=== PATIENT | male | born 1945 | race Two or more races ===

== ENCOUNTER 2017-01-20 16:07 | Inpatient (IN) | payer MEDICARE, MEDICAID ==
[~2017-01-20] VITALS: Ht 177.8 cm; Wt 84.8 kg
[~2017-01-20 16:07] MED LIST: ATOR10TA PO; Hydralazine Hcl PO; INSASP SUBCUT; INSULIN SQ; levemir SQ; zosyn PO
[2017-01-20] MEDS ORDERED: FUROSEMIDE 20MG/2ML VIAL IVP ONE (17:00)
[2017-01-20 17:15] LABS: BASOPHILS % 1.4 % (0.0-2.0); EOSINOPHILS % 6.1 % (0.0-5.0); HEMATOCRIT. 29.6 % (42.0-52.0); HEMOGLOBIN. 9.9 g/dL (14.0-18.0); LYMPHOCYTES % 22.9 % (20.0-50.0); MEAN CORPUSCULAR HEMOGLOBIN 29.3 pg (28.0-32.0); MEAN CORPUSCULAR VOLUME 88.1 fL (80.0-94.0); MEAN PLATELET VOLUME 8.8 fl (7.4-10.4); MONOCYTES % 11.6 % (2.0-8.0); PLATELET 241 x1000/uL (130-400); RED BLOOD CELL COUNT 3.36 mill/uL (4.7-6.1); RED CELL DISTRIBUTION WIDTH 14.5 % (11.6-14.6)
[2017-01-20 17:16] LABS: CHLORIDE 107 mEq/L (98-107)
[2017-01-20 17:18] LABS: INR 1.1; PARTIAL THROMBOPLASTIN TIME 26.4 sec (24.0-34.0)
[2017-01-20 17:19] LABS: CARBON DIOXIDE 21 mEq/L (21-32)
[2017-01-20 17:26] LABS: CREATINE KINASE 56 IU/L (39-308); CREATINE KINASE MB FRACTION 4.7 ng/mL (0.5-3.6); TROPONIN I < 0.02 ng/mL (0.00-0.04)
[2017-01-20 22:00] VITALS: BP 145/78
[2017-01-20 22:30] VITALS: BP 145/78
[2017-01-20] MEDS ORDERED: FERR-63 PO (23:02)
[2017-01-20] MEDS ORDERED: GUAI-735 PO (23:02)
[2017-01-20] MEDS ORDERED: INSU3INS6 SUBCUT (23:02)
[2017-01-20] MEDS ORDERED: VITAMIN C PO (23:02)
[2017-01-20] MEDS ORDERED: HYDR-523 PO (23:02)
[2017-01-20] MEDS ORDERED: CLON0.1T PO (23:02)
[2017-01-20] MEDS ORDERED: DOCU-138 PO (23:02)
[2017-01-20] MEDS ORDERED: METO-298 PO (23:02)
[2017-01-20] MEDS ORDERED: ACET-2178 PO (23:02)
[2017-01-20] MEDS ORDERED: ATOR10TA PO (23:02)
[2017-01-20] MEDS ORDERED: HYDR-4135 PO (23:02)
[2017-01-20] MEDS ORDERED: [UNRECOGNIZED DRUG - CODE] (23:02)
[2017-01-21] VITALS: BP 138/78
[2017-01-21] MEDS ORDERED: DEXTROSE 50% WATER 50ML SYRINGE IV PRN (00:15)
[2017-01-21] MEDS ORDERED: ACETAMINOPHEN 650MG/20.3ML UDC PO PRN ×2 (00:15→11:15)
[2017-01-21] MEDS: INSULIN LISPRO 100 UNITS/ML SUBCUT SCH ×5 (00:17→21:56)
[2017-01-21] MEDS: BLOOD SUGAR DIAGNOSTIC STRIP TEST SCH ×5 (00:18→21:51)
[2017-01-21 03:39] VITALS: BP 126/78
[2017-01-21 08:00] VITALS: BP 199/96
[2017-01-21] MEDS: FUROSEMIDE 40MG/4ML VIAL IVP SCH (09:13)
[2017-01-21] MEDS: NITROGLYCERIN OINT 1GM/INCH UDPKT TD SCH (11:36)
[2017-01-21] MEDS: AMLODIPINE 10MG TABLET PO SCH (11:36)
[2017-01-21 12:00] VITALS: BP 170/76
[2017-01-21] MEDS ORDERED: ONDANSETRON HCL 4MG/2ML VIAL IV PRN (12:30)
[2017-01-21] MEDS ORDERED: HYDROCODONE/ACETAMINOPHEN 5/325MG TABLET PO PRN (12:30)
[2017-01-21] MEDS ORDERED: IPRATROPIUM/ALBUTEROL 0.5-3(2.5)MG/3ML NEB INH PRN (12:30)
[2017-01-21 13:15] LABS: HEMATOCRIT 33.7 % (42.0-52.0); MEAN CORPUSCULAR HEMOGLOBIN 28.9 pg (28.0-32.0); MEAN CORPUSCULAR VOLUME 88.1 fL (80.0-94.0); PLATELET 267 x1000/uL (130-400); RED BLOOD CELL COUNT 3.82 mill/uL (4.7-6.1); RED CELL DISTRIBUTION WIDTH 14.6 % (11.6-14.6)
[2017-01-21 16:00] VITALS: BP 148/73
[2017-01-21 18:02] LABS: CARBON DIOXIDE 24 mEq/L (21-32); CHLORIDE 103 mEq/L (98-107); CREATINE KINASE 51 IU/L (39-308)
[2017-01-21 18:04] LABS: TROPONIN I < 0.02 ng/mL (0.00-0.04)
[2017-01-21 20:00] VITALS: BP 128/64
[2017-01-21 22:04] LABS: CLARITY URINE CLEAR (CLEAR); COLOR URINE YELLOW (YELLOW); GLUCOSE URINE TRACE (NEGATIVE); KETONES URINE NEGATIVE (NEGATIVE); LEUKOCYTE ESTERASE URINE NEGATIVE (NEGATIVE); NITRITE URINE NEGATIVE (NEGATIVE); OCCULT BLOOD URINE NEGATIVE (NEGATIVE); PH URINE 5.5 (4.5-8.0); PROTEIN URINE TRACE (NEGATIVE); UROBILINOGEN URINE 0.2 E.U./dL (0.2-1.0)
[2017-01-21 22:17] LABS: *AMPHETAMINES SCREEN URINE NEGATIVE (NEGATIVE); *BARBITURATES SCREEN URINE NEGATIVE (NEGATIVE); *BENZODIAZEPINES SCREEN URINE NEGATIVE (NEGATIVE); *COCAINE SCREEN URINE NEGATIVE (NEGATIVE); CANNABINOID URINE SCREEN NEGATIVE (NEGATIVE); METHADONE URINE SCREEN NEGATIVE (NEGATIVE); OPIATES URINE SCREEN NEGATIVE (NEGATIVE); PHENCYCLIDINE URINE SCREEN NEGATIVE (NEGATIVE)
[2017-01-22] VITALS: BP 116/58
[2017-01-22 00:23] LABS: CREATINE KINASE 49 IU/L (39-308); TROPONIN I < 0.02 ng/mL (0.00-0.04)
[2017-01-22 04:00] VITALS: BP 133/68
[2017-01-22] MEDS: BLOOD SUGAR DIAGNOSTIC STRIP TEST SCH ×4 (06:36→21:00)
[2017-01-22 08:00] VITALS: BP 145/70
[2017-01-22 08:00] LABS: CHLORIDE 105 mEq/L (98-107)
[2017-01-22] MEDS: INSULIN LISPRO 100 UNITS/ML SUBCUT SCH ×4 (08:30→23:08)
[2017-01-22] MEDS: FUROSEMIDE 40MG/4ML VIAL IVP SCH (08:32)
[2017-01-22] MEDS: NITROGLYCERIN OINT 1GM/INCH UDPKT TD SCH (08:32)
[2017-01-22] MEDS: AMLODIPINE 10MG TABLET PO SCH (08:32)
[2017-01-22 08:39] LABS: CARBON DIOXIDE 20 mEq/L (21-32)
[2017-01-22 12:00] VITALS: BP 126/60
[2017-01-22 16:00] VITALS: BP 127/64
[2017-01-22 20:00] VITALS: BP 123/62
[2017-01-22 22:41] LABS: BASOPHILS % 1.2 % (0.0-2.0); EOSINOPHILS % 5.2 % (0.0-5.0); HEMOGLOBIN. 11.7 g/dL (14.0-18.0); LYMPHOCYTES % 21.5 % (20.0-50.0); MEAN CORPUSCULAR HEMOGLOBIN 29.3 pg (28.0-32.0); MEAN CORPUSCULAR VOLUME 87.6 fL (80.0-94.0); MEAN PLATELET VOLUME 9.1 fl (7.4-10.4); MONOCYTES % 9.5 % (2.0-8.0); NEUTROPHILS % 62.6 % (40.0-76.0); PLATELET 272 x1000/uL (130-400); RED CELL DISTRIBUTION WIDTH 14.2 % (11.6-14.6)
[2017-01-22 23:31] LABS: CARBON DIOXIDE 25 mEq/L (21-32); CHLORIDE 105 mEq/L (98-107)
[2017-01-23] VITALS (7 sets, daily range): BP systolic 115–153; BP diastolic 60–92
[2017-01-23] MEDS: INSULIN LISPRO 100 UNITS/ML SUBCUT SCH ×4 (08:12→21:15)
[2017-01-23] MEDS: BLOOD SUGAR DIAGNOSTIC STRIP TEST SCH ×4 (08:13→21:00)
[2017-01-23] MEDS: NITROGLYCERIN OINT 1GM/INCH UDPKT TD SCH (08:15)
[2017-01-23] MEDS: AMLODIPINE 10MG TABLET PO SCH (08:15)
[2017-01-23] MEDS: FUROSEMIDE 40MG/4ML VIAL IVP SCH (08:16)
[2017-01-23] MEDS ORDERED: FURO-151 PO (18:41)
[2017-01-23] MEDS ORDERED: [UNRECOGNIZED DRUG - OTHER] PO (18:42)
[2017-01-23 21:21] LABS: BASOPHILS % 0.9 % (0.0-2.0); EOSINOPHILS % 5.1 % (0.0-5.0); HEMATOCRIT. 35.1 % (42.0-52.0); HEMOGLOBIN. 11.8 g/dL (14.0-18.0); LYMPHOCYTES % 17.5 % (20.0-50.0); MEAN CORPUSCULAR HEMOGLOBIN 29.4 pg (28.0-32.0); MEAN CORPUSCULAR VOLUME 87.1 fL (80.0-94.0); MEAN PLATELET VOLUME 9.5 fl (7.4-10.4); MONOCYTES % 9.4 % (2.0-8.0); NEUTROPHILS % 67.1 % (40.0-76.0); PLATELET 257 x1000/uL (130-400); RED BLOOD CELL COUNT 4.02 mill/uL (4.7-6.1); RED CELL DISTRIBUTION WIDTH 13.8 % (11.6-14.6)
[2017-01-23 21:34] LABS: CHLORIDE 103 mEq/L (98-107)
[2017-01-23 21:42] LABS: CARBON DIOXIDE 22 mEq/L (21-32)
[2017-01-24] VITALS (7 sets, daily range): BP systolic 118–154; BP diastolic 60–83
[2017-01-24 07:08] LABS: BASOPHILS % 0.9 % (0.0-2.0); HEMATOCRIT. 32.4 % (42.0-52.0); HEMOGLOBIN. 10.9 g/dL (14.0-18.0); LYMPHOCYTES % 17.5 % (20.0-50.0); MEAN CORPUSCULAR HEMOGLOBIN 29.4 pg (28.0-32.0); MEAN CORPUSCULAR VOLUME 87.6 fL (80.0-94.0); MEAN PLATELET VOLUME 9.1 fl (7.4-10.4); MONOCYTES % 10.8 % (2.0-8.0); NEUTROPHILS % 63.8 % (40.0-76.0); PLATELET 245 x1000/uL (130-400); RED BLOOD CELL COUNT 3.69 mill/uL (4.7-6.1)
[2017-01-24] MEDS ORDERED: GLIPIZIDE XL 2.5MG TABLET PO SCH (07:50)
[2017-01-24] MEDS: INSULIN LISPRO 100 UNITS/ML SUBCUT SCH ×2 (08:05→12:46)
[2017-01-24] MEDS: AMLODIPINE 10MG TABLET PO SCH (08:05)
[2017-01-24] MEDS: FUROSEMIDE 40MG/4ML VIAL IVP SCH (08:06)
[2017-01-24] MEDS: NITROGLYCERIN OINT 1GM/INCH UDPKT TD SCH (08:06)
[2017-01-24] MEDS: BLOOD SUGAR DIAGNOSTIC STRIP TEST SCH (12:38)
== END 2017-01-24 16:15 | DRG 291 ==
LOC: ER 17:07 → EDBEDREQ 17:48 → EDBEDREQSVC 17:48 → 6WST 18:21 → EDBEDREQ 18:24 → ENRESERV 20:34
PROVIDERS: ADMIT Family Medicine; ATTEND Family Medicine
DX: I13.0 Hypertensive heart and chronic kidney disease with heart failure and stage 1 through stage 4 chronic kidney disease, or unspecified chronic kidney disease (principal); I50.41 Acute combined systolic (congestive) and diastolic (congestive) heart failure; N17.9 Acute kidney failure, unspecified; N18.9 Chronic kidney disease, unspecified; J44.9 Chronic obstructive pulmonary disease, unspecified; M19.90 Unspecified osteoarthritis, unspecified site; I27.2 Other secondary pulmonary hypertension; I25.10 Atherosclerotic heart disease of native coronary artery without angina pectoris; I77.89 Other specified disorders of arteries and arterioles; H91.90 Unspecified hearing loss, unspecified ear; H40.9 Unspecified glaucoma; H26.9 Unspecified cataract; E78.5 Hyperlipidemia, unspecified; E78.00 Pure hypercholesterolemia, unspecified; E11.22 Type 2 diabetes mellitus with diabetic chronic kidney disease; D63.8 Anemia in other chronic diseases classified elsewhere; Z95.1 Presence of aortocoronary bypass graft; Z87.891 Personal history of nicotine dependence; Z79.899 Other long term (current) drug therapy; Z79.4 Long term (current) use of insulin; Z89.422 Acquired absence of other left toe(s)
CPT/HCPCS: 36415; 71010; 80048; 80053; 80305; 81001; 82550; 82553; 82962; 83690; 83735; 83880; 84484; 85025; 85027; 85610; 85651; 85730; 93005; 93306; 93923; 93970; 96374; 99285; A6261; J1815; J1940

== ENCOUNTER 2017-02-26 18:35 | Inpatient (IN) | payer MEDICARE, MEDICAID ==
[~2017-02-26] VITALS: Ht 182.9 cm; Wt 87.1 kg
[~2017-02-26 18:35] MED LIST changes: +CLON0.1T PO; +DOCU-138 PO; +FERR-63 PO; +FURO-151 PO; -Hydralazine Hcl PO; -INSASP SUBCUT; -INSULIN SQ; +[UNRECOGNIZED DRUG - CODE]; +[UNRECOGNIZED DRUG - OTHER] PO; -levemir SQ; -zosyn PO
[2017-02-26] MEDS ORDERED: FUROSEMIDE 40MG/4ML VIAL IV STA (18:46)
[2017-02-26] MEDS ORDERED: ASPIRIN 81MG TABLET PO STA (18:46)
[2017-02-26] MEDS ORDERED: METHYLPREDNISOLONE SOD SUCC 125 MG/2 ML VIAL IV STA (18:46)
[2017-02-26] MEDS ORDERED: IPRATROPIUM/ALBUTEROL 0.5-3(2.5)MG/3ML NEB HHN ONE (19:00)
[2017-02-26] MEDS ORDERED: LEVOFLOXACIN 750MG PREMIX 150 ML IV ONE (19:00)
[2017-02-26 19:16] LABS: HEMATOCRIT. 30.8 % (42.0-52.0); HEMOGLOBIN. 10.5 g/dL (14.0-18.0); MEAN CORPUSCULAR VOLUME 87.7 fL (80.0-94.0); MEAN PLATELET VOLUME 8.2 fl (7.4-10.4); PLATELET 271 x1000/uL (130-400); RED BLOOD CELL COUNT 3.52 mill/uL (4.7-6.1); RED CELL DISTRIBUTION WIDTH 14.4 % (11.6-14.6)
[2017-02-26 19:23] LABS: CHLORIDE 108 mEq/L (98-107)
[2017-02-26 19:26] LABS: INR 1.1; PARTIAL THROMBOPLASTIN TIME 27.1 sec (24.0-34.0)
[2017-02-26 19:27] LABS: BG BASE EXCESS -6.7 mmol/L (-2.0-2.0); BG CARBOXYHEMOGLOBIN 0.4 % (0.5-1.5); BG DEOXYHEMOGLOBIN 9.2 % (0.0-5.0); BG FRACTION INSPIRED OXYGEN 21; BG HCO3 ACT 18.5 mmol/L (22.0-26.0); BG METHEMOGLOBIN 0.3 % (0.0-1.5); BG OXYGEN SATURATION 90.7 % (92.0-98.5); BG OXYHEMOGLOBIN 90.1 % (94.0-97.0); BG PCO2 35.4 mmHg (35.0-45.0); BG PH 7.335 (7.350-7.450); BG PO2 59.8 mmHg (75.0-100.0); BG SAMPLE SITE LEFT BRACHIAL; BG TOTAL HEMOGLOBIN 10.6 g/dL (12.0-18.0); BG VENT MODE ROOM AIR
[2017-02-26 19:29] LABS: CARBON DIOXIDE 19 mEq/L (21-32)
[2017-02-26 19:32] LABS: CREATINE KINASE 68 IU/L (39-308)
[2017-02-26 19:34] LABS: TROPONIN I < 0.02 ng/mL (0.00-0.04)
[2017-02-26 19:37] LABS: PLATELET ESTIMATE NORMAL
[2017-02-26] MEDS: VANCOMYCIN 1 G PREMIX 200 ML IV SCH (20:05)
[2017-02-26] MEDS ORDERED: AMLO10TA80 PO (23:23)
[2017-02-26] MEDS ORDERED: NITR1OIN TD (23:23)
[2017-02-26] MEDS ORDERED: GLIP5TAB12 PO (23:23)
[2017-02-26] MEDS ORDERED: ASCO500C15 PO (23:23)
[2017-02-26] MEDS ORDERED: MULT-1146 PO (23:23)
[2017-02-26] MEDS ORDERED: HYDR-4134 PO (23:23)
[2017-02-26] MEDS ORDERED: ZINC220T PO (23:24)
[2017-02-26] MEDS ORDERED: METO50TA5 PO (23:24)
[2017-02-26] MEDS ORDERED: INSU3INS6 SUBCUT (23:26)
[2017-02-26 23:30] VITALS: BP 154/82
[2017-02-27] MEDS ORDERED: GUAI-735 PO (01:57)
[2017-02-27] MEDS ORDERED: HYDR-523 PO (01:57)
[2017-02-27] MEDS ORDERED: IPRA3AMP IH (01:57)
[2017-02-27] MEDS ORDERED: ACET-2178 PO (01:57)
[2017-02-27 04:00] VITALS: BP 137/71
[2017-02-27] MEDS ORDERED: IPRATROPIUM/ALBUTEROL 0.5-3(2.5)MG/3ML NEB HHN PRN (05:00)
[2017-02-27] MEDS ORDERED: DEXTROSE 50% WATER 50ML SYRINGE IV PRN (05:00)
[2017-02-27] MEDS ORDERED: CLONIDINE 0.1MG TABLET PO PRN (05:15)
[2017-02-27] MEDS ORDERED: ACETAMINOPHEN 325MG TABLET PO PRN (05:15)
[2017-02-27] MEDS ORDERED: HYDROCODONE/ACETAMINOPHEN 5/325MG TABLET PO PRN (05:15)
[2017-02-27] MEDS: BLOOD SUGAR DIAGNOSTIC STRIP TEST SCH ×4 (06:36→21:27)
[2017-02-27] MEDS: GLIPIZIDE 5MG TABLET PO SCH (07:43)
[2017-02-27 08:00] VITALS: BP 154/83
[2017-02-27] MEDS: INSULIN LISPRO 100 UNITS/ML SUBCUT SCH ×4 (08:48→21:29)
[2017-02-27] MEDS ORDERED: MEDICATION NOT ON FORMULARY EA (Zinc Sulfate 220 MG) PO SCH (09:00)
[2017-02-27] MEDS ORDERED: MEDICATION NOT ON FORMULARY EA (Multivitamin (Multi Vitamin Daily) 1 TAB) PO SCH (09:00)
[2017-02-27] MEDS ORDERED: MEDICATION NOT ON FORMULARY EA (Ascorbic Acid (Vitamin C) 500 MG) PO SCH (09:00)
[2017-02-27 09:50] LABS: HEMATOCRIT. 30.8 % (42.0-52.0); HEMOGLOBIN. 10.1 g/dL (14.0-18.0); MEAN CORPUSCULAR HEMOGLOBIN 29.1 pg (28.0-32.0); MEAN CORPUSCULAR VOLUME 88.4 fL (80.0-94.0); PLATELET 265 x1000/uL (130-400); RED BLOOD CELL COUNT 3.48 mill/uL (4.7-6.1); RED CELL DISTRIBUTION WIDTH 14.4 % (11.6-14.6)
[2017-02-27] MEDS: MULTIVITAMINS,THER W-MINERALS TABLET PO SCH (10:00)
[2017-02-27] MEDS: ZINC SULFATE 220 MG ( 50 ) CAPSULE PO SCH (10:01)
[2017-02-27] MEDS: ASCORBIC ACID 500 MG TABLET PO SCH (10:01)
[2017-02-27] MEDS: METOPROLOL TARTRATE 50MG TABLET PO SCH ×2 (10:01→21:19)
[2017-02-27] MEDS: DOCUSATE SODIUM 100MG CAPSULE PO SCH ×2 (10:01→18:11)
[2017-02-27] MEDS: AMLODIPINE 10MG TABLET PO SCH (10:02)
[2017-02-27 12:00] VITALS: BP 151/72
[2017-02-27 12:52] LABS: PLATELET ESTIMATE NORMAL
[2017-02-27 16:00] VITALS: BP 133/67
[2017-02-27 20:00] VITALS: BP 133/61
[2017-02-27] MEDS: ATORVASTATIN CALCIUM 10MG TABLET PO SCH (21:19)
[2017-02-27] MEDS: VANCOMYCIN 1 G PREMIX 200 ML IV SCH (21:27)
[2017-02-28] VITALS: BP 130/60
[2017-02-28 06:00] VITALS: BP 148/78
[2017-02-28] MEDS: BLOOD SUGAR DIAGNOSTIC STRIP TEST SCH ×4 (07:16→21:19)
[2017-02-28 08:00] VITALS: BP 149/84
[2017-02-28] MEDS: GLIPIZIDE 5MG TABLET PO SCH (08:08)
[2017-02-28] MEDS: INSULIN LISPRO 100 UNITS/ML SUBCUT SCH ×4 (08:09→21:00)
[2017-02-28] MEDS: ZINC SULFATE 220 MG ( 50 ) CAPSULE PO SCH (09:36)
[2017-02-28] MEDS: MULTIVITAMINS,THER W-MINERALS TABLET PO SCH (09:36)
[2017-02-28] MEDS: METOPROLOL TARTRATE 50MG TABLET PO SCH ×2 (09:36→21:00)
[2017-02-28] MEDS: DOCUSATE SODIUM 100MG CAPSULE PO SCH ×2 (09:36→17:36)
[2017-02-28] MEDS: AMLODIPINE 10MG TABLET PO SCH (09:36)
[2017-02-28] MEDS: ASCORBIC ACID 500 MG TABLET PO SCH (09:36)
[2017-02-28 12:00] VITALS: BP 146/76
[2017-02-28] MEDS: SODIUM CHLORIDE 0.45% 1,000 ML IV SCH (12:05)
[2017-02-28 14:44] LABS: BASOPHILS % 0.6 % (0.0-2.0); EOSINOPHILS % 0.6 % (0.0-5.0); HEMATOCRIT. 33.1 % (42.0-52.0); HEMOGLOBIN. 10.9 g/dL (14.0-18.0); LYMPHOCYTES % 11.1 % (20.0-50.0); MEAN CORPUSCULAR VOLUME 87.9 fL (80.0-94.0); MEAN PLATELET VOLUME 8.6 fl (7.4-10.4); MONOCYTES % 6.3 % (2.0-8.0); NEUTROPHILS % 81.4 % (40.0-76.0); PLATELET 293 x1000/uL (130-400); RED BLOOD CELL COUNT 3.76 mill/uL (4.7-6.1); RED CELL DISTRIBUTION WIDTH 14.6 % (11.6-14.6)
[2017-02-28 15:17] LABS: CARBON DIOXIDE 25 mEq/L (21-32); CHLORIDE 106 mEq/L (98-107)
[2017-02-28 16:00] VITALS: BP 126/57
[2017-02-28 20:00] VITALS: BP 145/73
[2017-02-28] MEDS: ATORVASTATIN CALCIUM 10MG TABLET PO SCH (21:17)
[2017-03-01] VITALS: BP 148/76
[2017-03-01] MEDS: SODIUM CHLORIDE 0.45% 1,000 ML IV SCH ×2 (01:25→16:24)
[2017-03-01 04:00] VITALS: BP 140/67
[2017-03-01] MEDS: BLOOD SUGAR DIAGNOSTIC STRIP TEST SCH ×4 (07:03→21:50)
[2017-03-01] MEDS: GLIPIZIDE 5MG TABLET PO SCH (08:59)
[2017-03-01] MEDS: AMLODIPINE 10MG TABLET PO SCH (09:00)
[2017-03-01] MEDS: MULTIVITAMINS,THER W-MINERALS TABLET PO SCH (09:00)
[2017-03-01] MEDS: ASCORBIC ACID 500 MG TABLET PO SCH (09:00)
[2017-03-01] MEDS: ZINC SULFATE 220 MG ( 50 ) CAPSULE PO SCH (09:00)
[2017-03-01] MEDS: METOPROLOL TARTRATE 50MG TABLET PO SCH ×2 (09:00→21:00)
[2017-03-01] MEDS: DOCUSATE SODIUM 100MG CAPSULE PO SCH ×2 (09:01→18:05)
[2017-03-01] MEDS: INSULIN LISPRO 100 UNITS/ML SUBCUT SCH ×4 (09:05→21:00)
[2017-03-01] MEDS ORDERED: LEVO500T15 PO (11:52)
[2017-03-01 12:00] VITALS: BP 168/70
[2017-03-01 12:36] LABS: BASOPHILS % 1.7 % (0.0-2.0); EOSINOPHILS % 2.1 % (0.0-5.0); HEMATOCRIT. 32.2 % (42.0-52.0); HEMOGLOBIN. 10.7 g/dL (14.0-18.0); LYMPHOCYTES % 13.8 % (20.0-50.0); MEAN CORPUSCULAR HEMOGLOBIN 29.2 pg (28.0-32.0); MEAN CORPUSCULAR VOLUME 87.7 fL (80.0-94.0); MEAN PLATELET VOLUME 8.4 fl (7.4-10.4); MONOCYTES % 8.7 % (2.0-8.0); NEUTROPHILS % 73.7 % (40.0-76.0); PLATELET 282 x1000/uL (130-400); RED BLOOD CELL COUNT 3.67 mill/uL (4.7-6.1); RED CELL DISTRIBUTION WIDTH 13.9 % (11.6-14.6)
[2017-03-01 12:59] LABS: CARBON DIOXIDE 23 mEq/L (21-32); CHLORIDE 105 mEq/L (98-107)
[2017-03-01] MEDS ORDERED: LEVOFLOXACIN 500MG PREMIX 100 ML IV SCH (14:00)
[2017-03-01 16:00] VITALS: BP 132/64
[2017-03-01 20:00] VITALS: BP 120/64
[2017-03-01] MEDS: ATORVASTATIN CALCIUM 10MG TABLET PO SCH (21:49)
[2017-03-02] MEDS ORDERED: LEVOFLOXACIN 500MG TABLET PO SCH (11:00)
[2017-03-03] MEDS ORDERED: LEVOFLOXACIN 250MG TABLET PO SCH (16:00)
== END 2017-03-01 23:58 | DRG 291 ==
LOC: ER 19:31 → 7WST 20:11 → EDBEDREQTM 20:15 → EDBEDREQ 20:15 → ENRESERV 20:22
PROVIDERS: ADMIT Family Medicine; ATTEND Family Medicine
DX: I13.0 Hypertensive heart and chronic kidney disease with heart failure and stage 1 through stage 4 chronic kidney disease, or unspecified chronic kidney disease (principal); J15.6 Pneumonia due to other Gram-negative bacteria; N17.9 Acute kidney failure, unspecified; E46 Unspecified protein-calorie malnutrition; E11.22 Type 2 diabetes mellitus with diabetic chronic kidney disease; I27.2 Other secondary pulmonary hypertension; L97.529 Non-pressure chronic ulcer of other part of left foot with unspecified severity; J44.0 Chronic obstructive pulmonary disease with (acute) lower respiratory infection; I50.32 Chronic diastolic (congestive) heart failure; D63.8 Anemia in other chronic diseases classified elsewhere; E78.00 Pure hypercholesterolemia, unspecified; I25.10 Atherosclerotic heart disease of native coronary artery without angina pectoris; M19.90 Unspecified osteoarthritis, unspecified site; N18.9 Chronic kidney disease, unspecified; Z82.49 Family history of ischemic heart disease and other diseases of the circulatory system; Z89.429 Acquired absence of other toe(s), unspecified side; Z95.1 Presence of aortocoronary bypass graft; Z79.4 Long term (current) use of insulin; Z89.412 Acquired absence of left great toe; Z89.422 Acquired absence of other left toe(s); Z68.26 Body mass index [BMI] 26.0-26.9, adult; Y95 Nosocomial condition; F17.210 Nicotine dependence, cigarettes, uncomplicated
CPT/HCPCS: 36415; 36600; 71010; 80048; 80053; 82375; 82550; 82805; 82962; 83605; 83690; 83880; 84443; 84484; 85025; 85610; 85730; 87040; 93005; 93970; 94640; 96365; 96366; 96367; 96375; 97116; 97162; 99285; J1815; J1940; J1956; J2930; J3370; J7030; J7050; J7620

== ENCOUNTER 2018-11-03 19:24 | Inpatient (IN) | payer MEDICARE, MEDICAID ==
[~2018-11-03] VITALS: Ht 190.5 cm; Wt 93.4 kg
[~2018-11-03 19:24] MED LIST changes: +ACET-2178 PO; +AMLO10TA80 PO; +ASCO500C15 PO; -FURO-151 PO; +GLIP5TAB12 PO; +IPRA3AMP31 IH; +LEVO500T2 PO; +MULT-1146 PO; -[UNRECOGNIZED DRUG - CODE]; -[UNRECOGNIZED DRUG - OTHER] PO
[2018-11-03 20:00] VITALS: BP 147/72
[2018-11-03 20:19] VITALS: BP 147/72
[2018-11-03] MEDS ORDERED: METO-385 PO (23:12)
[2018-11-03] MEDS ORDERED: MAG30ORA PO (23:12)
[2018-11-03] MEDS ORDERED: POT25TAB5 PO (23:12)
[2018-11-03] MEDS ORDERED: INSU100I24 SQ (23:12)
[2018-11-03] MEDS ORDERED: AMLO10TA4 PO (23:12)
[2018-11-03] MEDS ORDERED: HYDR-4001 PO (23:12)
[2018-11-03] MEDS ORDERED: FURO-151 PO (23:12)
[2018-11-04] VITALS: BP 133/55
[2018-11-04] MEDS ORDERED: DEXTROSE 50% WATER 50ML SYRINGE IV PRN ×2 (01:45)
[2018-11-04] MEDS ORDERED: SODIUM CHLORIDE 0.9% 1,000 ML IV SCH (03:00)
[2018-11-04 04:00] VITALS: BP 139/62
[2018-11-04 05:49] LABS: BASOPHILS % 1.1 % (0.0-2.0); EOSINOPHILS % 6.3 % (0.0-5.0); HEMOGLOBIN. 12.5 g/dL (14.0-18.0); LYMPHOCYTES % 14.8 % (20.0-50.0); MEAN CORPUSCULAR HEMOGLOBIN 29.8 pg (28.0-32.0); MEAN CORPUSCULAR VOLUME 88.1 fL (80.0-94.0); MEAN PLATELET VOLUME 9.2 fl (7.4-10.4); MONOCYTES % 8.8 % (2.0-8.0); PLATELET 280 x1000/uL (130-400); RED CELL DISTRIBUTION WIDTH 13.5 % (11.6-14.6)
[2018-11-04 05:52] LABS: CHLORIDE 105 mEq/L (98-107)
[2018-11-04] MEDS: INSULIN LISPRO 100 UNITS/ML SUBCUT SCH ×4 (07:20→21:10)
[2018-11-04] MEDS: BLOOD SUGAR DIAGNOSTIC STRIP TEST SCH ×4 (07:30→21:11)
[2018-11-04 08:00] VITALS: BP 147/72
[2018-11-04] MEDS ORDERED: VANCOMYCIN 1 G PREMIX 200 ML IV SCH (11:45)
[2018-11-04] MEDS ORDERED: IPRATROPIUM/ALBUTEROL 0.5-3(2.5)MG/3ML NEB INH PRN (11:45)
[2018-11-04] MEDS ORDERED: MAGNESIUM/ALUMINUM HYDROXIDE/SIMETHICONE 30ML UDC PO PRN (11:45)
[2018-11-04] MEDS ORDERED: ACETAMINOPHEN 650MG SUPP PR PRN (11:45)
[2018-11-04] MEDS ORDERED: DIPHENHYDRAMINE 50MG/ML VIAL IV PRN (11:45)
[2018-11-04] MEDS ORDERED: ACETAMINOPHEN 325MG TABLET PO PRN (11:45)
[2018-11-04] MEDS ORDERED: HYDROCODONE/ACETAMINOPHEN 5/325MG TABLET PO PRN (11:45)
[2018-11-04] MEDS ORDERED: DOCUSATE SODIUM 100MG CAPSULE PO PRN (11:45)
[2018-11-04] MEDS ORDERED: ACETAMINOPHEN 650MG/20.3ML UDC GT PRN (11:45)
[2018-11-04] MEDS ORDERED: GUAIFENESIN 200MG/10ML SUGAR FREE UDC PO PRN (11:45)
[2018-11-04 12:01] VITALS: BP 130/64
[2018-11-04] MEDS: SODIUM CHLORIDE 0.45% 1,000 ML IV SCH (12:47)
[2018-11-04 12:48] LABS: BASOPHILS % 1.2 % (0.0-2.0); EOSINOPHILS % 5.6 % (0.0-5.0); HEMATOCRIT. 36.3 % (42.0-52.0); HEMOGLOBIN. 12.2 g/dL (14.0-18.0); LYMPHOCYTES % 15.7 % (20.0-50.0); MEAN CORPUSCULAR HEMOGLOBIN 29.5 pg (28.0-32.0); MEAN CORPUSCULAR VOLUME 87.8 fL (80.0-94.0); MEAN PLATELET VOLUME 8.5 fl (7.4-10.4); MONOCYTES % 8.1 % (2.0-8.0); NEUTROPHILS % 69.4 % (40.0-76.0); PLATELET 261 x1000/uL (130-400); RED BLOOD CELL COUNT 4.14 mill/uL (4.7-6.1); RED CELL DISTRIBUTION WIDTH 13.8 % (11.6-14.6)
[2018-11-04 12:51] LABS: PROTHROMBIN TIME 10.3 sec (9.6-11.0)
[2018-11-04 12:53] LABS: CHLORIDE 107 mEq/L (98-107)
[2018-11-04] MEDS: ENOXAPARIN 40MG/0.4ML SYR SUBCUT SCH ×3 (13:00→13:17)
[2018-11-04] MEDS ORDERED: VANCOMYCIN 1500MG in DEXTROSE 5% WATER 250ML IV NR (14:30)
[2018-11-04] MEDS: IPRATROPIUM/ALBUTEROL 0.5-3(2.5)MG/3ML NEB INH SCH ×2 (15:21→20:14)
[2018-11-04 15:39] VITALS: BP 149/77
[2018-11-04] MEDS: CEFTRIAXONE 1 G PREMIX 50 ML IV SCH (17:01)
[2018-11-04] MEDS: SODIUM CHLORIDE 0.9% INJ 3ML FLUSH IVF SCH (17:02)
[2018-11-04 20:00] VITALS: BP 163/83
[2018-11-04 20:41] LABS: CLARITY URINE CLOUDY (CLEAR); COLOR URINE YELLOW (YELLOW); KETONES URINE NEGATIVE (NEGATIVE); LEUKOCYTE ESTERASE URINE 3+ (NEGATIVE); NITRITE URINE NEGATIVE (NEGATIVE); OCCULT BLOOD URINE TRACE (NEGATIVE); PROTEIN URINE 1+ (NEGATIVE); SPECIFIC GRAVITY URINE 1.013 (1.005-1.030); UROBILINOGEN URINE 0.2 E.U./dL (0.2-1.0)
[2018-11-04] MEDS: ACETAMINOPHEN 325MG TABLET PO PRN (21:04)
[2018-11-05] VITALS: BP 143/67
[2018-11-05] MEDS: SODIUM CHLORIDE 0.9% INJ 3ML FLUSH IVF SCH ×3 (00:12→14:00)
[2018-11-05] MEDS: IPRATROPIUM/ALBUTEROL 0.5-3(2.5)MG/3ML NEB INH SCH ×4 (01:30→20:55)
[2018-11-05] MEDS: ACETAMINOPHEN 325MG TABLET PO PRN ×2 (01:50→20:28)
[2018-11-05] MEDS: SODIUM CHLORIDE 0.45% 1,000 ML IV SCH ×2 (01:51→16:39)
[2018-11-05 04:00] VITALS: BP 169/77
[2018-11-05] MEDS: CLONIDINE 0.1MG TABLET PO PRN (05:17)
[2018-11-05 06:02] LABS: HEMATOCRIT. 35.1 % (42.0-52.0); HEMOGLOBIN. 11.9 g/dL (14.0-18.0); MEAN CORPUSCULAR HEMOGLOBIN 29.8 pg (28.0-32.0); MEAN CORPUSCULAR VOLUME 88.2 fL (80.0-94.0); MEAN PLATELET VOLUME 8.7 fl (7.4-10.4); PLATELET 252 x1000/uL (130-400); RED BLOOD CELL COUNT 3.98 mill/uL (4.7-6.1); RED CELL DISTRIBUTION WIDTH 13.3 % (11.6-14.6)
[2018-11-05 06:32] LABS: CHLORIDE 106 mEq/L (98-107)
[2018-11-05 06:43] LABS: LDL CHOLESTEROL 73 mg/dL (5-100)
[2018-11-05 06:45] LABS: HDL CHOLESTEROL 29 mg/dL (40-59)
[2018-11-05] MEDS: BLOOD SUGAR DIAGNOSTIC STRIP TEST SCH ×4 (06:47→20:19)
[2018-11-05] MEDS: INSULIN LISPRO 100 UNITS/ML SUBCUT SCH ×4 (07:20→21:46)
[2018-11-05 08:00] VITALS: BP 157/68
[2018-11-05 12:00] VITALS: BP 157/69
[2018-11-05 12:54] LABS: PLATELET ESTIMATE NORMAL
[2018-11-05] MEDS: ENOXAPARIN 40MG/0.4ML SYR SUBCUT SCH (13:00)
[2018-11-05] MEDS: CEFTRIAXONE 1 G PREMIX 50 ML IV SCH (13:42)
[2018-11-05 15:53] VITALS: BP 166/69
[2018-11-05] MEDS: VANCOMYCIN 750 MG PREMIX 150 ML IV SCH (16:39)
[2018-11-05 20:00] VITALS: BP 150/76
[2018-11-06] VITALS (7 sets, daily range): BP systolic 141–170; BP diastolic 60–90
[2018-11-06] MEDS: IPRATROPIUM/ALBUTEROL 0.5-3(2.5)MG/3ML NEB INH SCH ×3 (03:18→15:04)
[2018-11-06] MEDS: BLOOD SUGAR DIAGNOSTIC STRIP TEST SCH ×3 (08:05→18:13)
[2018-11-06] MEDS: INSULIN LISPRO 100 UNITS/ML SUBCUT SCH ×3 (08:47→18:23)
[2018-11-06] MEDS: ENOXAPARIN 40MG/0.4ML SYR SUBCUT SCH (12:37)
[2018-11-06] MEDS: CEFTRIAXONE 1 G PREMIX 50 ML IV SCH (14:11)
[2018-11-06] MEDS: VANCOMYCIN 750 MG PREMIX 150 ML IV SCH (14:45)
[2018-11-06] MEDS: CLONIDINE 0.1MG TABLET PO PRN (22:06)
== END 2018-11-06 22:55 | disposition home or self-care (01) | DRG 683 ==
LOC: 6EST 19:24
PROVIDERS: ADMIT Family Medicine; ATTEND Family Medicine
DX: N17.9 Acute kidney failure, unspecified (principal); I13.0 Hypertensive heart and chronic kidney disease with heart failure and stage 1 through stage 4 chronic kidney disease, or unspecified chronic kidney disease; I50.32 Chronic diastolic (congestive) heart failure; N18.3 Chronic kidney disease, stage 3 (moderate); D64.9 Anemia, unspecified; E78.5 Hyperlipidemia, unspecified; J44.9 Chronic obstructive pulmonary disease, unspecified; E11.22 Type 2 diabetes mellitus with diabetic chronic kidney disease; I25.10 Atherosclerotic heart disease of native coronary artery without angina pectoris; Z91.81 History of falling
CPT/HCPCS: 36415; 71046; 76770; 80048; 80061; 80202; 82962; 83880; 84484; 87804; 94640; 97161; C1893; J0696; J1650; J1815; J3370; J7030; J7060; J7620

== ENCOUNTER 2019-02-28 16:05 | Inpatient (IN) | payer MEDICARE, MEDICAID ==
[~2019-02-28] VITALS: Ht 170.2 cm; Wt 89.1 kg
[~2019-02-28 16:05] MED LIST changes: -ACET-2178 PO; +AMLO10TA4 PO; +INSU100I24 SQ; +MAG30ORA PO; +METO-385 PO; +POT25TAB5 PO; +TOPUD PO
[2019-02-28] MEDS ORDERED: SODIUM CHLORIDE 0.9% 1,000 ML IV ONE (20:43)
[2019-02-28] MEDS ORDERED: ONDANSETRON HCL 4MG/2ML INJ IV STA (20:43)
[2019-02-28] MEDS ORDERED: FAMOTIDINE 20MG/2ML VIAL IV STA (20:43)
[2019-02-28] MEDS ORDERED: INSULIN REGULAR (HUMULIN R) 300UNITS/3ML IV ONE (21:00)
[2019-02-28 23:03] LABS: BASOPHILS % 1.1 % (0.0-2.0); HEMATOCRIT. 38.1 % (42.0-52.0); HEMOGLOBIN. 12.8 g/dL (14.0-18.0); LYMPHOCYTES % 10.7 % (20.0-50.0); MEAN CORPUSCULAR HEMOGLOBIN 30.1 pg (28.0-32.0); MEAN CORPUSCULAR VOLUME 89.7 fL (80.0-94.0); MONOCYTES % 3.7 % (2.0-8.0); NEUTROPHILS % 83.5 % (40.0-76.0); PLATELET 260 x1000/uL (130-400); RED BLOOD CELL COUNT 4.25 mill/uL (4.7-6.1); RED CELL DISTRIBUTION WIDTH 13.5 % (11.6-14.6)
[2019-02-28 23:11] LABS: CHLORIDE 102 mEq/L (98-107); PROTHROMBIN TIME 10.5 sec (9.6-11.0)
[2019-02-28 23:15] LABS: ETHANOL BLOOD < 10 mg/dL
[2019-03-01] MEDS ORDERED: ASPIRIN 81MG TABLET PO ONE (00:15)
[2019-03-01 00:31] LABS: CLARITY URINE CLEAR (CLEAR); COLOR URINE YELLOW (YELLOW); KETONES URINE 2+ (NEGATIVE); LEUKOCYTE ESTERASE URINE NEGATIVE (NEGATIVE); NITRITE URINE NEGATIVE (NEGATIVE); OCCULT BLOOD URINE 1+ (NEGATIVE); PROTEIN URINE 2+ (NEGATIVE); SPECIFIC GRAVITY URINE 1.016 (1.005-1.030); UROBILINOGEN URINE 0.2 E.U./dL (0.2-1.0)
[2019-03-01 01:24] LABS: *AMPHETAMINES SCREEN URINE NEGATIVE (NEGATIVE); *BARBITURATES SCREEN URINE NEGATIVE (NEGATIVE); *COCAINE SCREEN URINE NEGATIVE (NEGATIVE); CANNABINOID URINE SCREEN NEGATIVE (NEGATIVE); METHADONE URINE SCREEN NEGATIVE (NEGATIVE); OPIATES URINE SCREEN NEGATIVE (NEGATIVE)
[2019-03-01 01:36] LABS: *BENZODIAZEPINES SCREEN URINE NEGATIVE (NEGATIVE)
[2019-03-01 01:38] LABS: PHENCYCLIDINE URINE SCREEN NEGATIVE (NEGATIVE)
[2019-03-01] MEDS ORDERED: ACETAMINOPHEN 325MG TABLET PO ONE (03:15)
[2019-03-01 08:00] VITALS: BP 178/91
[2019-03-01 12:00] VITALS: BP 174/100
[2019-03-01 16:00] VITALS: BP 159/80
[2019-03-01 17:29] VITALS: BP 178/91
[2019-03-01 20:00] VITALS: BP 188/102
[2019-03-01 20:33] LABS: BASOPHILS % 1.2 % (0.0-2.0); EOSINOPHILS % 3.2 % (0.0-5.0); HEMATOCRIT. 36.4 % (42.0-52.0); HEMOGLOBIN. 12.2 g/dL (14.0-18.0); LYMPHOCYTES % 12.3 % (20.0-50.0); MEAN CORPUSCULAR VOLUME 89.3 fL (80.0-94.0); MEAN PLATELET VOLUME 10.6 fl (7.4-10.4); MONOCYTES % 10.3 % (2.0-8.0); PLATELET 237 x1000/uL (130-400); RED BLOOD CELL COUNT 4.08 mill/uL (4.7-6.1); RED CELL DISTRIBUTION WIDTH 13.7 % (11.6-14.6)
[2019-03-01] MEDS ORDERED: ONDANSETRON HCL 4MG/2ML INJ IV PRN (20:45)
[2019-03-01] MEDS ORDERED: CLONIDINE 0.1MG TABLET PO PRN (20:45)
[2019-03-01] MEDS ORDERED: DEXTROSE 50% WATER 50ML SYRINGE IV PRN (20:45)
[2019-03-01] MEDS: ENOXAPARIN 30MG/0.3ML SYR SUBCUT SCH (21:00)
[2019-03-01] MEDS: BLOOD SUGAR DIAGNOSTIC STRIP TEST SCH (21:00)
[2019-03-01] MEDS: AMLODIPINE 10MG TABLET PO SCH (22:21)
[2019-03-01] MEDS: INSULIN LISPRO 100 UNITS/ML SUBCUT SCH (22:26)
[2019-03-01] MEDS: ACETAMINOPHEN 325MG TABLET PO PRN (22:56)
[2019-03-01] MEDS: SODIUM CHLORIDE 0.9% 1,000 ML IV SCH (23:12)
[2019-03-02] VITALS: BP 130/61
[2019-03-02 04:00] VITALS: BP 134/60
[2019-03-02] MEDS: INSULIN LISPRO 100 UNITS/ML SUBCUT SCH ×4 (06:45→20:42)
[2019-03-02] MEDS: BLOOD SUGAR DIAGNOSTIC STRIP TEST SCH ×4 (06:46→20:38)
[2019-03-02 08:00] VITALS: BP 160/86
[2019-03-02] MEDS: AMLODIPINE 10MG TABLET PO SCH (08:36)
[2019-03-02] MEDS: SODIUM CHLORIDE 0.9% 1,000 ML IV SCH (11:28)
[2019-03-02 12:00] VITALS: BP 150/75
[2019-03-02] MEDS ORDERED: IPRATROPIUM/ALBUTEROL 0.5-3(2.5)MG/3ML NEB HHN PRN (15:30)
[2019-03-02] MEDS ORDERED: AMLODIPINE 10MG TABLET PO SCH (15:30)
[2019-03-02] MEDS ORDERED: CLONIDINE 0.1MG TABLET PO PRN (15:30)
[2019-03-02 16:00] VITALS: BP 154/80
[2019-03-02] MEDS: FERROUS SULFATE 325MG TABLET PO SCH (16:03)
[2019-03-02] MEDS: GLIPIZIDE 5MG TABLET PO SCH (16:03)
[2019-03-02] MEDS: ASCORBIC ACID 500 MG TABLET PO SCH (16:03)
[2019-03-02 16:13] LABS: BASOPHILS % 1.1 % (0.0-2.0); EOSINOPHILS % 4.7 % (0.0-5.0); HEMATOCRIT. 38.7 % (42.0-52.0); HEMOGLOBIN. 12.9 g/dL (14.0-18.0); LYMPHOCYTES % 10.8 % (20.0-50.0); MEAN CORPUSCULAR HEMOGLOBIN 29.9 pg (28.0-32.0); MEAN CORPUSCULAR VOLUME 89.6 fL (80.0-94.0); MEAN PLATELET VOLUME 9.8 fl (7.4-10.4); NEUTROPHILS % 74.4 % (40.0-76.0); PLATELET 243 x1000/uL (130-400); RED BLOOD CELL COUNT 4.32 mill/uL (4.7-6.1); RED CELL DISTRIBUTION WIDTH 13.4 % (11.6-14.6)
[2019-03-02 16:16] LABS: CHLORIDE 101 mEq/L (98-107)
[2019-03-02] MEDS: DOCUSATE SODIUM 100MG CAPSULE PO SCH (17:30)
[2019-03-02 20:00] VITALS: BP 155/78
[2019-03-02] MEDS: ENOXAPARIN 30MG/0.3ML SYR SUBCUT SCH (20:38)
[2019-03-02] MEDS: METOPROLOL TARTRATE 50MG TABLET PO SCH (20:38)
[2019-03-03] VITALS: BP 134/71
[2019-03-03] MEDS: SODIUM CHLORIDE 0.9% 1,000 ML IV SCH ×2 (01:24→13:01)
[2019-03-03] MEDS: ACETAMINOPHEN 325MG TABLET PO PRN ×3 (03:47→18:07)
[2019-03-03 04:00] VITALS: BP 157/76
[2019-03-03] MEDS: BLOOD SUGAR DIAGNOSTIC STRIP TEST SCH ×4 (06:36→20:26)
[2019-03-03] MEDS: INSULIN LISPRO 100 UNITS/ML SUBCUT SCH ×4 (06:50→20:35)
[2019-03-03 08:00] VITALS: BP 129/54
[2019-03-03] MEDS: ASCORBIC ACID 500 MG TABLET PO SCH (09:20)
[2019-03-03] MEDS: DOCUSATE SODIUM 100MG CAPSULE PO SCH ×2 (09:20→18:07)
[2019-03-03] MEDS: GLIPIZIDE 5MG TABLET PO SCH (09:20)
[2019-03-03] MEDS: FERROUS SULFATE 325MG TABLET PO SCH (09:20)
[2019-03-03] MEDS: METOPROLOL TARTRATE 50MG TABLET PO SCH ×2 (09:20→20:32)
[2019-03-03] MEDS: AMLODIPINE 10MG TABLET PO SCH (09:20)
[2019-03-03 12:00] VITALS: BP 123/65
[2019-03-03 16:00] VITALS: BP 120/56
[2019-03-03 19:21] LABS: EOSINOPHILS % 5.4 % (0.0-5.0); HEMATOCRIT. 35.4 % (42.0-52.0); HEMOGLOBIN. 11.8 g/dL (14.0-18.0); LYMPHOCYTES % 14.2 % (20.0-50.0); MEAN CORPUSCULAR HEMOGLOBIN 29.4 pg (28.0-32.0); MEAN CORPUSCULAR VOLUME 88.3 fL (80.0-94.0); MEAN PLATELET VOLUME 9.8 fl (7.4-10.4); MONOCYTES % 10.9 % (2.0-8.0); NEUTROPHILS % 68.5 % (40.0-76.0); PLATELET 241 x1000/uL (130-400); RED BLOOD CELL COUNT 4.01 mill/uL (4.7-6.1); RED CELL DISTRIBUTION WIDTH 13.2 % (11.6-14.6)
[2019-03-03 19:26] LABS: CHLORIDE 103 mEq/L (98-107)
[2019-03-03 20:00] VITALS: BP 142/64
[2019-03-03] MEDS: ENOXAPARIN 40MG/0.4ML SYR SUBCUT SCH ×2 (20:32→20:36)
[2019-03-04] VITALS (7 sets, daily range): BP systolic 130–150; BP diastolic 67–80
[2019-03-04] MEDS: SODIUM CHLORIDE 0.9% 1,000 ML IV SCH ×2 (01:52→14:02)
[2019-03-04] MEDS: ACETAMINOPHEN 325MG TABLET PO PRN ×2 (01:59→06:33)
[2019-03-04] MEDS: BLOOD SUGAR DIAGNOSTIC STRIP TEST SCH ×3 (05:47→16:53)
[2019-03-04] MEDS: INSULIN LISPRO 100 UNITS/ML SUBCUT SCH ×3 (06:37→17:13)
[2019-03-04] MEDS: DOCUSATE SODIUM 100MG CAPSULE PO SCH ×2 (08:45→17:06)
[2019-03-04] MEDS: METOPROLOL TARTRATE 50MG TABLET PO SCH (08:45)
[2019-03-04] MEDS: FERROUS SULFATE 325MG TABLET PO SCH (08:45)
[2019-03-04] MEDS: GLIPIZIDE 5MG TABLET PO SCH (08:45)
[2019-03-04] MEDS: AMLODIPINE 10MG TABLET PO SCH (08:45)
[2019-03-04] MEDS: ASCORBIC ACID 500 MG TABLET PO SCH (08:45)
== END 2019-03-04 21:01 | disposition home health service (06) | DRG 640 ==
LOC: ER 17:34 → 5WST 03-01 01:17 → EDBEDREQ 03-01 01:20 → EDBEDREQTM 03-01 01:20 → ENRESERV 03-01 04:50
PROVIDERS: ADMIT Family Medicine; ATTEND Family Medicine
DX: E86.0 Dehydration (principal); N17.0 Acute kidney failure with tubular necrosis; D64.9 Anemia, unspecified; E11.22 Type 2 diabetes mellitus with diabetic chronic kidney disease; E78.00 Pure hypercholesterolemia, unspecified; E66.9 Obesity, unspecified; R26.9 Unspecified abnormalities of gait and mobility; M19.90 Unspecified osteoarthritis, unspecified site; I12.9 Hypertensive chronic kidney disease with stage 1 through stage 4 chronic kidney disease, or unspecified chronic kidney disease; J44.9 Chronic obstructive pulmonary disease, unspecified; K57.90 Diverticulosis of intestine, part unspecified, without perforation or abscess without bleeding; R19.7 Diarrhea, unspecified; K80.20 Calculus of gallbladder without cholecystitis without obstruction; N18.9 Chronic kidney disease, unspecified; N40.0 Benign prostatic hyperplasia without lower urinary tract symptoms; Z95.1 Presence of aortocoronary bypass graft; Z86.73 Personal history of transient ischemic attack (TIA), and cerebral infarction without residual deficits; Z82.49 Family history of ischemic heart disease and other diseases of the circulatory system; Z68.30 Body mass index [BMI] 30.0-30.9, adult
CPT/HCPCS: 36415; 74018; 74176; 80048; 80305; 80320; 81003; 82270; 82962; 84484; 87493; 93005; 96374; 96375; 99285; C1893; J1650; J1815; J2405; J3490; J7030; G0480

== ENCOUNTER 2019-07-24 11:18 | Emergency (ER) | payer MEDICARE, MEDICAID ==
[~2019-07-24] VITALS: Ht 167.6 cm; Wt 87.0 kg
[2019-07-24] MEDS ORDERED: ONDANSETRON HCL 4MG/2ML INJ IV STA (12:29)
[2019-07-24] MEDS ORDERED: SODIUM CHLORIDE 0.9% 1,000 ML IV ONE (12:29)
[2019-07-24 15:05] LABS: PROTHROMBIN TIME 10.2 sec (9.6-11.0)
[2019-07-24 15:08] LABS: BASOPHILS % 1.1 % (0.0-2.0); CHLORIDE 106 mEq/L (98-107); EOSINOPHILS % 5.6 % (0.0-5.0); HEMATOCRIT. 36.7 % (42.0-52.0); HEMOGLOBIN. 12.2 g/dL (14.0-18.0); LYMPHOCYTES % 13.7 % (20.0-50.0); MEAN CORPUSCULAR VOLUME 87.4 fL (80.0-94.0); MEAN PLATELET VOLUME 8.9 fl (7.4-10.4); MONOCYTES % 8.1 % (2.0-8.0); NEUTROPHILS % 71.5 % (40.0-76.0); PLATELET 296 x1000/uL (130-400); RED CELL DISTRIBUTION WIDTH 14.3 % (11.6-14.6)
[2019-07-24 16:20] LABS: CLARITY URINE CLEAR (CLEAR); COLOR URINE YELLOW (YELLOW); KETONES URINE NEGATIVE (NEGATIVE); LEUKOCYTE ESTERASE URINE NEGATIVE (NEGATIVE); NITRITE URINE NEGATIVE (NEGATIVE); OCCULT BLOOD URINE 1+ (NEGATIVE); PROTEIN URINE 2+ (NEGATIVE); SPECIFIC GRAVITY URINE 1.011 (1.005-1.030); UROBILINOGEN URINE 0.2 E.U./dL (0.2-1.0)
[2019-07-24 19:12] VITALS: BP 150/82
== END 2019-07-24 21:45 | disposition home or self-care (01) ==
LOC: ER 11:18
DX: R11.10 Vomiting, unspecified (principal); R19.7 Diarrhea, unspecified; M79.89 Other specified soft tissue disorders; R10.9 Unspecified abdominal pain; J44.9 Chronic obstructive pulmonary disease, unspecified; E78.00 Pure hypercholesterolemia, unspecified; E11.9 Type 2 diabetes mellitus without complications; I10 Essential (primary) hypertension; I25.10 Atherosclerotic heart disease of native coronary artery without angina pectoris; Z98.890 Other specified postprocedural states; Z95.1 Presence of aortocoronary bypass graft; Z79.899 Other long term (current) drug therapy; Z79.4 Long term (current) use of insulin
CPT/HCPCS: 36415; 74176; 80053; 81003; 83605; 83690; 85025; 85610; 93005; 99284; J7030

== ENCOUNTER 2019-09-25 11:23 | Inpatient (IN) | payer BC, MEDICAID ==
[~2019-09-25] VITALS: Ht 170.2 cm; Wt 81.6 kg
[2019-09-25] MEDS ORDERED: CEFTRIAXONE 1 G PREMIX 50 ML IV ONE (12:45)
[2019-09-25 13:05] LABS: BASOPHILS % 1.5 % (0.0-2.0); EOSINOPHILS % 3.3 % (0.0-5.0); HEMATOCRIT. 29.4 % (42.0-52.0); HEMOGLOBIN. 9.7 g/dL (14.0-18.0); LYMPHOCYTES % 11.8 % (20.0-50.0); MEAN CORPUSCULAR HEMOGLOBIN 29.3 pg (28.0-32.0); MEAN CORPUSCULAR VOLUME 88.9 fL (80.0-94.0); MEAN PLATELET VOLUME 8.6 fl (7.4-10.4); MONOCYTES % 9.9 % (2.0-8.0); NEUTROPHILS % 73.5 % (40.0-76.0); PLATELET 288 x1000/uL (130-400); RED CELL DISTRIBUTION WIDTH 15.2 % (11.6-14.6)
[2019-09-25 13:14] LABS: CHLORIDE 105 mEq/L (98-107)
[2019-09-25 13:17] LABS: ETHANOL BLOOD < 10 mg/dL
[2019-09-25] MEDS ORDERED: ONDANSETRON HCL 4MG/2ML INJ IV PRN (16:45)
[2019-09-25] MEDS ORDERED: FUROSEMIDE 40MG/4ML VIAL IVP NR (16:45)
[2019-09-25] MEDS ORDERED: DEXTROSE 50% WATER 50ML SYRINGE IV PRN (17:00)
[2019-09-25] MEDS: BLOOD SUGAR DIAGNOSTIC STRIP TEST SCH ×2 (17:19→21:00)
[2019-09-25 17:50] VITALS: BP 132/70
[2019-09-25 18:00] VITALS: BP 132/70
[2019-09-25 18:14] LABS: TOTAL IRON BINDING CAPACITY 286 ug/dL (250-450)
[2019-09-25] MEDS ORDERED: INSULIN LISPRO 100 UNITS/ML SUBCUT SCH (18:20)
[2019-09-25 20:00] VITALS: BP 131/67
[2019-09-25] MEDS: INSULIN LISPRO 100 UNITS/ML SUBCUT SCH (21:00)
[2019-09-25] MEDS ORDERED: VANCOMYCIN 1250MG in DEXTROSE 5% WATER 250ML IV NR (21:00)
[2019-09-26] VITALS: BP 135/66
[2019-09-26 02:00] VITALS: BP 135/66
[2019-09-26] MEDS: BLOOD SUGAR DIAGNOSTIC STRIP TEST SCH ×4 (06:42→21:00)
[2019-09-26] MEDS: INSULIN LISPRO 100 UNITS/ML SUBCUT SCH ×4 (06:43→21:38)
[2019-09-26 08:00] VITALS: BP 144/68
[2019-09-26 09:59] LABS: CLARITY URINE CLEAR (CLEAR); COLOR URINE YELLOW (YELLOW); KETONES URINE NEGATIVE (NEGATIVE); LEUKOCYTE ESTERASE URINE NEGATIVE (NEGATIVE); NITRITE URINE NEGATIVE (NEGATIVE); OCCULT BLOOD URINE NEGATIVE (NEGATIVE); PH URINE 6.5 (4.5-8.0); PROTEIN URINE 2+ (NEGATIVE); SPECIFIC GRAVITY URINE 1.014 (1.005-1.030); UROBILINOGEN URINE 0.2 E.U./dL (0.2-1.0)
[2019-09-26 10:02] LABS: *AMPHETAMINES SCREEN URINE NEGATIVE (NEGATIVE)
[2019-09-26 10:05] LABS: *BARBITURATES SCREEN URINE NEGATIVE (NEGATIVE); *BENZODIAZEPINES SCREEN URINE NEGATIVE (NEGATIVE); *COCAINE SCREEN URINE NEGATIVE (NEGATIVE); CANNABINOID URINE SCREEN NEGATIVE (NEGATIVE); METHADONE URINE SCREEN NEGATIVE (NEGATIVE); OPIATES URINE SCREEN NEGATIVE (NEGATIVE); PHENCYCLIDINE URINE SCREEN NEGATIVE (NEGATIVE)
[2019-09-26 12:00] VITALS: BP 149/73
[2019-09-26 12:00] LABS: EOSINOPHILS % 4.8 % (0.0-5.0); HEMATOCRIT. 31.5 % (42.0-52.0); HEMOGLOBIN. 10.5 g/dL (14.0-18.0); LYMPHOCYTES % 8.9 % (20.0-50.0); MEAN CORPUSCULAR HEMOGLOBIN 29.5 pg (28.0-32.0); MEAN CORPUSCULAR VOLUME 88.7 fL (80.0-94.0); MEAN PLATELET VOLUME 8.9 fl (7.4-10.4); MONOCYTES % 5.6 % (2.0-8.0); NEUTROPHILS % 79.7 % (40.0-76.0); PLATELET 283 x1000/uL (130-400); RED BLOOD CELL COUNT 3.56 mill/uL (4.7-6.1); RED CELL DISTRIBUTION WIDTH 14.7 % (11.6-14.6)
[2019-09-26] MEDS: GABAPENTIN 300MG CAPSULE PO SCH ×2 (14:36→21:28)
[2019-09-26 16:00] VITALS: BP 109/57
[2019-09-26] MEDS: FUROSEMIDE 40MG/4ML VIAL IVP SCH (17:40)
[2019-09-26 20:00] VITALS: BP 155/84
[2019-09-26] MEDS: CARVEDILOL 6.25 MG TABLET PO SCH (21:31)
[2019-09-27] VITALS: BP 142/78
[2019-09-27 04:00] VITALS: BP 143/73
[2019-09-27] MEDS: GABAPENTIN 300MG CAPSULE PO SCH ×3 (06:31→21:05)
[2019-09-27] MEDS: BLOOD SUGAR DIAGNOSTIC STRIP TEST SCH ×4 (06:50→20:35)
[2019-09-27 06:56] LABS: BASOPHILS % 0.9 % (0.0-2.0); EOSINOPHILS % 6.7 % (0.0-5.0); HEMOGLOBIN. 10.5 g/dL (14.0-18.0); LYMPHOCYTES % 15.2 % (20.0-50.0); MEAN CORPUSCULAR HEMOGLOBIN 29.9 pg (28.0-32.0); MEAN CORPUSCULAR VOLUME 88.6 fL (80.0-94.0); MEAN PLATELET VOLUME 8.7 fl (7.4-10.4); MONOCYTES % 9.4 % (2.0-8.0); NEUTROPHILS % 67.8 % (40.0-76.0); PLATELET 295 x1000/uL (130-400); RED CELL DISTRIBUTION WIDTH 14.8 % (11.6-14.6)
[2019-09-27] MEDS: INSULIN LISPRO 100 UNITS/ML SUBCUT SCH ×4 (07:50→20:41)
[2019-09-27 08:00] VITALS: BP 114/60
[2019-09-27] MEDS: FUROSEMIDE 40MG/4ML VIAL IVP SCH (09:11)
[2019-09-27] MEDS: CARVEDILOL 6.25 MG TABLET PO SCH ×2 (09:11→20:45)
[2019-09-27 12:00] VITALS: BP 134/69
[2019-09-27 16:00] VITALS: BP 168/81
[2019-09-27 20:00] VITALS: BP 136/60
[2019-09-27] MEDS: ACETAMINOPHEN 325MG TABLET PO PRN (21:01)
[2019-09-28] VITALS: BP 104/53
[2019-09-28 04:00] VITALS: BP 127/67
[2019-09-28] MEDS: GABAPENTIN 300MG CAPSULE PO SCH ×3 (05:29→21:26)
[2019-09-28] MEDS: ACETAMINOPHEN 325MG TABLET PO PRN (05:36)
[2019-09-28] MEDS: BLOOD SUGAR DIAGNOSTIC STRIP TEST SCH ×4 (06:36→20:34)
[2019-09-28 08:00] VITALS: BP 108/59
[2019-09-28] MEDS: FUROSEMIDE 40MG/4ML VIAL IVP SCH (08:46)
[2019-09-28] MEDS: CARVEDILOL 6.25 MG TABLET PO SCH ×2 (09:00→20:40)
[2019-09-28] MEDS: INSULIN LISPRO 100 UNITS/ML SUBCUT SCH ×4 (09:08→20:49)
[2019-09-28 12:00] VITALS: BP 107/51
[2019-09-28 16:00] VITALS: BP 116/62
[2019-09-28 20:00] VITALS: BP_SYST 124; BP_SYST 134; BP_DIAS 62; BP_DIAS 79
[2019-09-28] MEDS: INSULIN GLARGINE UD 100 UNITS/ML SYR SUBCUT SCH (21:31)
[2019-09-29] VITALS: BP 126/73
[2019-09-29 04:00] VITALS: BP 120/77
[2019-09-29] MEDS: GABAPENTIN 300MG CAPSULE PO SCH ×3 (05:27→22:51)
[2019-09-29] MEDS: BLOOD SUGAR DIAGNOSTIC STRIP TEST SCH ×4 (07:33→21:00)
[2019-09-29] MEDS: FUROSEMIDE 40MG/4ML VIAL IVP SCH (09:16)
[2019-09-29] MEDS: CARVEDILOL 6.25 MG TABLET PO SCH ×2 (09:18→22:51)
[2019-09-29] MEDS: INSULIN LISPRO 100 UNITS/ML SUBCUT SCH ×4 (09:24→23:08)
[2019-09-29 12:00] VITALS: BP 135/70
[2019-09-29] MEDS: INSULIN GLARGINE UD 100 UNITS/ML SYR SUBCUT SCH ×2 (12:00→23:05)
[2019-09-29] MEDS ORDERED: FURO-151 MT (13:30)
[2019-09-29] MEDS ORDERED: COR6 PO (13:30)
[2019-09-29 16:00] VITALS: BP 126/42
[2019-09-29 20:00] VITALS: BP 142/72
[2019-09-30] VITALS: BP 124/53
[2019-09-30 04:00] VITALS: BP 142/60
[2019-09-30] MEDS: GABAPENTIN 300MG CAPSULE PO SCH ×3 (06:55→22:53)
[2019-09-30] MEDS: BLOOD SUGAR DIAGNOSTIC STRIP TEST SCH ×4 (06:55→21:00)
[2019-09-30 08:00] VITALS: BP 137/76
[2019-09-30] MEDS: FUROSEMIDE 40MG/4ML VIAL IVP SCH (09:28)
[2019-09-30] MEDS: CARVEDILOL 6.25 MG TABLET PO SCH ×2 (09:28→22:53)
[2019-09-30] MEDS: INSULIN LISPRO 100 UNITS/ML SUBCUT SCH ×4 (10:09→23:07)
[2019-09-30] MEDS: INSULIN GLARGINE UD 100 UNITS/ML SYR SUBCUT SCH ×2 (10:09→22:54)
[2019-09-30 12:00] VITALS: BP 132/80
[2019-09-30 16:00] VITALS: BP 128/81
[2019-09-30 20:00] VITALS: BP 153/68
[2019-10-01] VITALS: BP 130/50
[2019-10-01 04:00] VITALS: BP 120/55
[2019-10-01] MEDS: GABAPENTIN 300MG CAPSULE PO SCH ×3 (06:07→21:33)
[2019-10-01] MEDS: BLOOD SUGAR DIAGNOSTIC STRIP TEST SCH ×4 (06:12→21:00)
[2019-10-01] MEDS: INSULIN LISPRO 100 UNITS/ML SUBCUT SCH ×4 (07:56→21:48)
[2019-10-01 08:00] VITALS: BP 145/74
[2019-10-01] MEDS: FUROSEMIDE 40MG/4ML VIAL IVP SCH (09:59)
[2019-10-01] MEDS: CARVEDILOL 6.25 MG TABLET PO SCH ×2 (09:59→21:45)
[2019-10-01] MEDS: INSULIN GLARGINE UD 100 UNITS/ML SYR SUBCUT SCH ×2 (10:16→21:58)
[2019-10-01 12:00] VITALS: BP 121/62
[2019-10-01 16:00] VITALS: BP 125/60
[2019-10-01 20:00] VITALS: BP 123/63
[2019-10-02] VITALS: BP 132/70
[2019-10-02 04:00] VITALS: BP 138/66
[2019-10-02] MEDS: GABAPENTIN 300MG CAPSULE PO SCH ×2 (06:34→14:35)
[2019-10-02] MEDS: BLOOD SUGAR DIAGNOSTIC STRIP TEST SCH ×2 (07:20→12:20)
[2019-10-02 08:00] VITALS: BP 154/59
[2019-10-02] MEDS: CARVEDILOL 6.25 MG TABLET PO SCH (09:00)
[2019-10-02] MEDS: FUROSEMIDE 40MG/4ML VIAL IVP SCH (10:00)
[2019-10-02] MEDS: INSULIN LISPRO 100 UNITS/ML SUBCUT SCH ×2 (10:09→12:32)
[2019-10-02] MEDS: INSULIN GLARGINE UD 100 UNITS/ML SYR SUBCUT SCH (10:55)
[2019-10-02 11:55] VITALS: BP 127/71
[2019-10-02 12:00] VITALS: BP 132/54
== END 2019-10-02 16:30 | disposition home health service (06) | DRG 73 ==
LOC: ER 11:23 → 6EST 14:20 → EDBEDREQ 14:33 → EDBEDREQSVC 14:33 → ENRESERV 15:55 → ER 17:56
PROVIDERS: ADMIT Internal Medicine; ATTEND Internal Medicine
DX: G90.8 Other disorders of autonomic nervous system (principal); N17.0 Acute kidney failure with tubular necrosis; I13.0 Hypertensive heart and chronic kidney disease with heart failure and stage 1 through stage 4 chronic kidney disease, or unspecified chronic kidney disease; L03.115 Cellulitis of right lower limb; E44.0 Moderate protein-calorie malnutrition; L03.116 Cellulitis of left lower limb; E11.42 Type 2 diabetes mellitus with diabetic polyneuropathy; E11.22 Type 2 diabetes mellitus with diabetic chronic kidney disease; H91.90 Unspecified hearing loss, unspecified ear; D64.9 Anemia, unspecified; R26.89 Other abnormalities of gait and mobility; R19.7 Diarrhea, unspecified; I25.10 Atherosclerotic heart disease of native coronary artery without angina pectoris; I70.0 Atherosclerosis of aorta; N18.9 Chronic kidney disease, unspecified; Z95.1 Presence of aortocoronary bypass graft; Z79.899 Other long term (current) drug therapy; Z79.4 Long term (current) use of insulin; Z89.422 Acquired absence of other left toe(s); Z86.73 Personal history of transient ischemic attack (TIA), and cerebral infarction without residual deficits; Z68.28 Body mass index [BMI] 28.0-28.9, adult
CPT/HCPCS: 36415; 71045; 80048; 80053; 80305; 80320; 81003; 82728; 82962; 83540; 83550; 83880; 84484; 85025; 93005; 93306; 97162; 99285; J0696; J1815; J1940; J2405; J3370; J7060; G0480

== ENCOUNTER 2019-12-18 17:16 | Inpatient (IN) | payer MEDICARE, MEDICAID ==
[~2019-12-18] VITALS: Ht 170.2 cm; Wt 81.6 kg
[~2019-12-18 17:16] MED LIST changes: -AMLO10TA4 PO; -AMLO10TA80 PO; +COR6 PO; -FERR-63 PO; +FURO-151 MT; -LEVO500T2 PO; -METO-385 PO
[2019-12-18] MEDS ORDERED: ONDANSETRON HCL 4MG/2ML INJ IV STA (19:53)
[2019-12-18] MEDS ORDERED: SODIUM CHLORIDE 0.9% 500 ML IV ONE (19:53)
[2019-12-18 20:04] LABS: EOSINOPHILS % 2.7 % (0.0-5.0); HEMATOCRIT. 40.8 % (42.0-52.0); HEMOGLOBIN. 13.8 g/dL (14.0-18.0); LYMPHOCYTES % 10.3 % (20.0-50.0); MEAN CORPUSCULAR HEMOGLOBIN 29.7 pg (28.0-32.0); MEAN CORPUSCULAR VOLUME 87.8 fL (80.0-94.0); MEAN PLATELET VOLUME 9.6 fl (7.4-10.4); MONOCYTES % 5.4 % (2.0-8.0); NEUTROPHILS % 80.6 % (40.0-76.0); PLATELET 266 x1000/uL (130-400); RED BLOOD CELL COUNT 4.65 mill/uL (4.7-6.1); RED CELL DISTRIBUTION WIDTH 14.1 % (11.6-14.6)
[2019-12-18 20:07] LABS: CHLORIDE 104 mEq/L (98-107)
[2019-12-18 20:08] LABS: PROTHROMBIN TIME 10.4 sec (9.6-11.0)
[2019-12-18] MEDS ORDERED: ONDANSETRON HCL 4MG/2ML INJ IV ONE (21:00)
[2019-12-18] MEDS ORDERED: ASPIRIN 81MG TABLET PO ONE (21:00)
[2019-12-18 22:39] LABS: CLARITY URINE CLEAR (CLEAR); COLOR URINE YELLOW (YELLOW); KETONES URINE TRACE (NEGATIVE); LEUKOCYTE ESTERASE URINE NEGATIVE (NEGATIVE); NITRITE URINE NEGATIVE (NEGATIVE); OCCULT BLOOD URINE TRACE (NEGATIVE); PROTEIN URINE 3+ (NEGATIVE); SPECIFIC GRAVITY URINE 1.019 (1.005-1.030); UROBILINOGEN URINE 0.2 E.U./dL (0.2-1.0)
[2019-12-19] MEDS ORDERED: DEXTROSE 50% WATER 50ML SYRINGE IV PRN (02:15)
[2019-12-19] MEDS: BLOOD SUGAR DIAGNOSTIC STRIP TEST SCH ×5 (02:48→21:30)
[2019-12-19] MEDS: INSULIN LISPRO (MEDIUM DOSE) 100 UNITS/ML SUBCUT SCH ×5 (02:53→21:32)
[2019-12-19] MEDS ORDERED: ACETAMINOPHEN 500MG TABLET PO NR (03:45)
[2019-12-19 06:40] VITALS: BP 143/68
[2019-12-19 06:56] VITALS: BP 170/84
[2019-12-19 08:00] VITALS: BP_SYST 146; BP_DIAS 68; BP_DIAS 88
[2019-12-19] MEDS ORDERED: ONDANSETRON HCL 4MG/2ML INJ IV PRN (09:30)
[2019-12-19] MEDS ORDERED: FUROSEMIDE 40MG/4ML VIAL IVP SCH (10:00)
[2019-12-19] MEDS: AMLODIPINE 5MG TABLET PO SCH ×2 (11:42→21:00)
[2019-12-19] MEDS: CARVEDILOL 12.5MG TABLET PO SCH ×2 (11:43→21:00)
[2019-12-19 12:00] VITALS: BP 159/79
[2019-12-19] MEDS: INSULIN GLARGINE UD 100 UNITS/ML SYR SUBCUT SCH ×2 (12:47→21:55)
[2019-12-19 13:41] LABS: EOSINOPHILS % 5.4 % (0.0-5.0); HEMATOCRIT. 36.4 % (42.0-52.0); HEMOGLOBIN. 12.3 g/dL (14.0-18.0); LYMPHOCYTES % 16.8 % (20.0-50.0); MEAN CORPUSCULAR VOLUME 88.8 fL (80.0-94.0); MEAN PLATELET VOLUME 9.2 fl (7.4-10.4); MONOCYTES % 8.1 % (2.0-8.0); NEUTROPHILS % 68.7 % (40.0-76.0); PLATELET 233 x1000/uL (130-400); RED BLOOD CELL COUNT 4.09 mill/uL (4.7-6.1); RED CELL DISTRIBUTION WIDTH 14.1 % (11.6-14.6)
[2019-12-19 16:00] VITALS: BP 148/72
[2019-12-19 20:00] VITALS: BP 111/51
[2019-12-19] MEDS ORDERED: ACETAMINOPHEN 650MG/20.3ML UDC PO PRN (23:30)
[2019-12-20] VITALS: BP 111/68
[2019-12-20 04:00] VITALS: BP 137/61
[2019-12-20] MEDS: BLOOD SUGAR DIAGNOSTIC STRIP TEST SCH ×4 (05:50→21:07)
[2019-12-20] MEDS: INSULIN LISPRO (MEDIUM DOSE) 100 UNITS/ML SUBCUT SCH ×4 (05:50→21:08)
[2019-12-20 06:41] LABS: BASOPHILS % 1.3 % (0.0-2.0); EOSINOPHILS % 7.4 % (0.0-5.0); HEMATOCRIT. 35.7 % (42.0-52.0); MEAN CORPUSCULAR HEMOGLOBIN 29.7 pg (28.0-32.0); MEAN CORPUSCULAR VOLUME 88.1 fL (80.0-94.0); MEAN PLATELET VOLUME 9.5 fl (7.4-10.4); MONOCYTES % 11.5 % (2.0-8.0); NEUTROPHILS % 54.8 % (40.0-76.0); PLATELET 228 x1000/uL (130-400); RED BLOOD CELL COUNT 4.05 mill/uL (4.7-6.1); RED CELL DISTRIBUTION WIDTH 14.1 % (11.6-14.6)
[2019-12-20 08:00] VITALS: BP 134/72
[2019-12-20] MEDS ORDERED: FUROSEMIDE 40MG/4ML VIAL IVP SCH (09:00)
[2019-12-20] MEDS: ASPIRIN 81MG TABLET PO SCH (10:02)
[2019-12-20] MEDS: CARVEDILOL 12.5MG TABLET PO SCH ×2 (10:02→21:07)
[2019-12-20] MEDS: AMLODIPINE 5MG TABLET PO SCH ×2 (10:03→21:06)
[2019-12-20] MEDS: INSULIN GLARGINE UD 100 UNITS/ML SYR SUBCUT SCH ×2 (11:45→21:09)
[2019-12-20 12:00] VITALS: BP 125/66
[2019-12-20 16:00] VITALS: BP 120/52
[2019-12-20 20:00] VITALS: BP 131/52
[2019-12-21] VITALS: BP 138/85
[2019-12-21 04:00] VITALS: BP 131/50
[2019-12-21] MEDS: BLOOD SUGAR DIAGNOSTIC STRIP TEST SCH ×2 (05:50→11:45)
[2019-12-21] MEDS: INSULIN LISPRO (MEDIUM DOSE) 100 UNITS/ML SUBCUT SCH ×2 (05:50→13:27)
[2019-12-21 08:00] VITALS: BP 122/61
[2019-12-21] MEDS: AMLODIPINE 5MG TABLET PO SCH (10:18)
[2019-12-21] MEDS: CARVEDILOL 12.5MG TABLET PO SCH (10:18)
[2019-12-21] MEDS: INSULIN GLARGINE UD 100 UNITS/ML SYR SUBCUT SCH (10:18)
[2019-12-21] MEDS: ASPIRIN 81MG TABLET PO SCH (10:18)
[2019-12-21 12:00] VITALS: BP 119/61
[2019-12-21 13:43] VITALS: BP 119/61
== END 2019-12-21 14:55 | disposition home or self-care (01) | DRG 291 ==
LOC: ER 17:16 → EDBEDREQTM 12-19 00:03 → EDBEDREQ 12-19 00:03 → EDBEDREQDT 12-19 00:03 → ENRESERV 12-19 05:15 → 5WST 12-19 06:28
PROVIDERS: ADMIT Internal Medicine Nephrology; ATTEND Internal Medicine Nephrology
DX: I13.0 Hypertensive heart and chronic kidney disease with heart failure and stage 1 through stage 4 chronic kidney disease, or unspecified chronic kidney disease (principal); I50.23 Acute on chronic systolic (congestive) heart failure; N17.9 Acute kidney failure, unspecified; E46 Unspecified protein-calorie malnutrition; L97.928 Non-pressure chronic ulcer of unspecified part of left lower leg with other specified severity; L97.919 Non-pressure chronic ulcer of unspecified part of right lower leg with unspecified severity; I42.9 Cardiomyopathy, unspecified; D64.9 Anemia, unspecified; E11.22 Type 2 diabetes mellitus with diabetic chronic kidney disease; E11.42 Type 2 diabetes mellitus with diabetic polyneuropathy; I25.10 Atherosclerotic heart disease of native coronary artery without angina pectoris; I27.20 Pulmonary hypertension, unspecified; N18.9 Chronic kidney disease, unspecified; R19.7 Diarrhea, unspecified; R26.89 Other abnormalities of gait and mobility; L98.9 Disorder of the skin and subcutaneous tissue, unspecified; S80.822A Blister (nonthermal), left lower leg, initial encounter; S80.821A Blister (nonthermal), right lower leg, initial encounter; E11.622 Type 2 diabetes mellitus with other skin ulcer; Z95.1 Presence of aortocoronary bypass graft; I25.2 Old myocardial infarction; Z79.84 Long term (current) use of oral hypoglycemic drugs; Z79.899 Other long term (current) drug therapy; Z79.1 Long term (current) use of non-steroidal anti-inflammatories (NSAID); Z79.4 Long term (current) use of insulin; Z68.28 Body mass index [BMI] 28.0-28.9, adult
CPT/HCPCS: 36415; 71045; 80048; 80053; 81003; 82962; 83880; 84484; 85025; 93005; 97116; 97162; 97166; 97530; 99285; J1815; J1940; J2405; J7030

== ENCOUNTER 2020-02-02 10:46 | Inpatient (IN) | payer MEDICARE, MEDICAID ==
[~2020-02-02] VITALS: Ht 170.2 cm; Wt 81.6 kg
[2020-02-02] MEDS ORDERED: PIPERACILLIN/TAZ 3.375G PREMIX 50 ML IV ONE (11:15)
[2020-02-02] MEDS ORDERED: VANCOMYCIN 1 G PREMIX 200 ML IV ONE (11:15)
[2020-02-02 11:29] LABS: BASOPHILS % 0.8 % (0.0-2.0); EOSINOPHILS % 3.8 % (0.0-5.0); HEMATOCRIT. 37.6 % (42.0-52.0); HEMOGLOBIN. 12.6 g/dL (14.0-18.0); LYMPHOCYTES % 9.6 % (20.0-50.0); MEAN CORPUSCULAR HEMOGLOBIN 29.9 pg (28.0-32.0); MEAN CORPUSCULAR VOLUME 89.1 fL (80.0-94.0); MEAN PLATELET VOLUME 9.3 fl (7.4-10.4); MONOCYTES % 7.9 % (2.0-8.0); NEUTROPHILS % 77.9 % (40.0-76.0); PLATELET 281 x1000/uL (130-400); RED BLOOD CELL COUNT 4.22 mill/uL (4.7-6.1)
[2020-02-02 11:31] LABS: CHLORIDE 100 mEq/L (98-107)
[2020-02-02 11:33] LABS: PROTHROMBIN TIME 10.8 sec (9.6-11.0)
[2020-02-02 14:55] LABS: CLARITY URINE CLEAR (CLEAR); COLOR URINE YELLOW (YELLOW); KETONES URINE NEGATIVE (NEGATIVE); LEUKOCYTE ESTERASE URINE NEGATIVE (NEGATIVE); NITRITE URINE NEGATIVE (NEGATIVE); OCCULT BLOOD URINE NEGATIVE (NEGATIVE); PH URINE 5.5 (4.5-8.0); PROTEIN URINE 1+ (NEGATIVE); SPECIFIC GRAVITY URINE 1.012 (1.005-1.030); UROBILINOGEN URINE 0.2 E.U./dL (0.2-1.0)
[2020-02-02 15:28] VITALS: BP 156/79
[2020-02-02 16:00] VITALS: BP 156/79
[2020-02-02] MEDS ORDERED: DOCUSATE SODIUM 250MG CAPSULE PO PRN (16:30)
[2020-02-02] MEDS ORDERED: CLONIDINE 0.1MG TABLET PO PRN (16:30)
[2020-02-02] MEDS ORDERED: DEXTROSE 50% WATER 50ML SYRINGE IV PRN (16:30)
[2020-02-02] MEDS: BLOOD SUGAR DIAGNOSTIC STRIP TEST SCH ×2 (16:48→21:14)
[2020-02-02] MEDS: ENOXAPARIN 30MG/0.3ML SYR SUBCUT SCH (16:58)
[2020-02-02] MEDS: INSULIN LISPRO 100 UNITS/ML SUBCUT SCH ×2 (16:58→21:20)
[2020-02-02] MEDS ORDERED: VANCOMYCIN 500 MG PREMIX 100 ML IV SCH (18:00)
[2020-02-02 20:00] VITALS: BP 141/72
[2020-02-03] VITALS: BP 139/70
[2020-02-03 04:00] VITALS: BP 135/75
[2020-02-03] MEDS: BLOOD SUGAR DIAGNOSTIC STRIP TEST SCH ×4 (07:23→20:49)
[2020-02-03 08:00] VITALS: BP 137/67
[2020-02-03] MEDS: INSULIN LISPRO 100 UNITS/ML SUBCUT SCH ×4 (08:51→21:09)
[2020-02-03 12:00] VITALS: BP_SYST 119; BP_SYST 144; BP_DIAS 64; BP_DIAS 66
[2020-02-03] MEDS: HYDROCODONE/ACETAMINOPHEN 5/325MG TABLET PO PRN (12:52)
[2020-02-03 16:00] VITALS: BP 120/61
[2020-02-03] MEDS ORDERED: VANCOMYCIN 750 MG PREMIX 150 ML IV SCH (16:00)
[2020-02-03] MEDS: ENOXAPARIN 30MG/0.3ML SYR SUBCUT SCH (17:14)
[2020-02-03 20:00] VITALS: BP 123/57
[2020-02-04] VITALS: BP 127/52
[2020-02-04 04:00] VITALS: BP 147/57
[2020-02-04] MEDS: BLOOD SUGAR DIAGNOSTIC STRIP TEST SCH ×4 (06:14→21:02)
[2020-02-04] MEDS: INSULIN LISPRO 100 UNITS/ML SUBCUT SCH ×4 (07:01→21:36)
[2020-02-04 12:00] VITALS: BP 155/73
[2020-02-04 15:46] LABS: CHLORIDE 103 mEq/L (98-107)
[2020-02-04 15:47] LABS: EOSINOPHILS % 4.1 % (0.0-5.0); HEMATOCRIT. 36.1 % (42.0-52.0); HEMOGLOBIN. 12.4 g/dL (14.0-18.0); LYMPHOCYTES % 13.3 % (20.0-50.0); MEAN CORPUSCULAR HEMOGLOBIN 30.2 pg (28.0-32.0); MEAN PLATELET VOLUME 9.3 fl (7.4-10.4); MONOCYTES % 11.7 % (2.0-8.0); NEUTROPHILS % 69.9 % (40.0-76.0); PLATELET 251 x1000/uL (130-400); RED CELL DISTRIBUTION WIDTH 13.7 % (11.6-14.6)
[2020-02-04 16:00] VITALS: BP 145/67
[2020-02-04] MEDS ORDERED: VANCOMYCIN 750 MG PREMIX 150 ML IV NR (17:00)
[2020-02-04] MEDS: ENOXAPARIN 30MG/0.3ML SYR SUBCUT SCH (18:11)
[2020-02-04] MEDS ORDERED: CEPH-569 MT (18:16)
[2020-02-04 20:00] VITALS: BP 122/58
[2020-02-04] MEDS: HYDROCODONE/ACETAMINOPHEN 5/325MG TABLET PO PRN (21:02)
[2020-02-05] VITALS: BP 148/63
[2020-02-05 04:00] VITALS: BP 136/59
[2020-02-05] MEDS: BLOOD SUGAR DIAGNOSTIC STRIP TEST SCH (06:51)
[2020-02-05] MEDS: INSULIN LISPRO 100 UNITS/ML SUBCUT SCH (07:07)
[2020-02-05 08:00] VITALS: BP 159/66
== END 2020-02-05 11:00 | disposition home health service (06) | DRG 299 ==
LOC: ER 11:26 → 6EST 12:41 → EDBEDREQSVC 12:49 → EDBEDREQ 12:49 → ENRESERV 14:25
PROVIDERS: ADMIT Family Medicine; ATTEND Family Medicine
DX: E11.51 Type 2 diabetes mellitus with diabetic peripheral angiopathy without gangrene (principal); N17.0 Acute kidney failure with tubular necrosis; I42.9 Cardiomyopathy, unspecified; L03.115 Cellulitis of right lower limb; I50.32 Chronic diastolic (congestive) heart failure; L03.116 Cellulitis of left lower limb; N17.9 Acute kidney failure, unspecified; E11.621 Type 2 diabetes mellitus with foot ulcer; E11.628 Type 2 diabetes mellitus with other skin complications; E11.40 Type 2 diabetes mellitus with diabetic neuropathy, unspecified; E11.65 Type 2 diabetes mellitus with hyperglycemia; E78.5 Hyperlipidemia, unspecified; I15.2 Hypertension secondary to endocrine disorders; I25.10 Atherosclerotic heart disease of native coronary artery without angina pectoris; I27.20 Pulmonary hypertension, unspecified; N18.9 Chronic kidney disease, unspecified; E11.22 Type 2 diabetes mellitus with diabetic chronic kidney disease; I87.8 Other specified disorders of veins; K59.00 Constipation, unspecified; R26.9 Unspecified abnormalities of gait and mobility; L89.319 Pressure ulcer of right buttock, unspecified stage; B95.62 Methicillin resistant Staphylococcus aureus infection as the cause of diseases classified elsewhere; Z89.432 Acquired absence of left foot; Z79.899 Other long term (current) drug therapy; Z79.4 Long term (current) use of insulin; Z95.1 Presence of aortocoronary bypass graft
CPT/HCPCS: 36415; 71045; 80048; 80053; 80202; 81003; 82962; 83036; 83605; 85025; 93005; 99285; J1650; J1815; J2543; J3370

== ENCOUNTER 2020-02-11 15:48 | Inpatient (IN) | payer MEDICARE, MEDICAID ==
[~2020-02-11] VITALS: Ht 170.2 cm; Wt 79.4 kg
[~2020-02-11 15:48] MED LIST changes: +CEPH-569 MT
[2020-02-11] MEDS ORDERED: VANCOMYCIN 1 G PREMIX 200 ML IV ONE (18:15)
[2020-02-11] MEDS ORDERED: PIPERACILLIN/TAZ 3.375G PREMIX 50 ML IV ONE (18:15)
[2020-02-11] MEDS ORDERED: ASPIRIN 81MG TABLET PO ONE (18:15)
[2020-02-11] MEDS ORDERED: FUROSEMIDE 40MG/4ML VIAL IV ONE (18:15)
[2020-02-11 18:33] LABS: BASOPHILS % 0.9 % (0.0-2.0); EOSINOPHILS % 5.8 % (0.0-5.0); HEMATOCRIT. 32.8 % (42.0-52.0); HEMOGLOBIN. 11.3 g/dL (14.0-18.0); LYMPHOCYTES % 16.2 % (20.0-50.0); MEAN CORPUSCULAR HEMOGLOBIN 30.7 pg (28.0-32.0); MEAN PLATELET VOLUME 8.5 fl (7.4-10.4); MONOCYTES % 10.7 % (2.0-8.0); NEUTROPHILS % 66.4 % (40.0-76.0); PLATELET 355 x1000/uL (130-400); RED BLOOD CELL COUNT 3.69 mill/uL (4.7-6.1); RED CELL DISTRIBUTION WIDTH 13.7 % (11.6-14.6)
[2020-02-11 18:40] LABS: CHLORIDE 102 mEq/L (98-107)
[2020-02-11 18:45] LABS: PROTHROMBIN TIME 10.5 sec (9.6-11.0)
[2020-02-11] MEDS ORDERED: ONDANSETRON HCL 4MG/2ML INJ IV PRN (22:00)
[2020-02-11] MEDS ORDERED: HYDROCODONE/ACETAMINOPHEN 5/325MG TABLET PO PRN (22:00)
[2020-02-11] MEDS ORDERED: CLONIDINE 0.1MG TABLET PO PRN (22:00)
[2020-02-11] MEDS ORDERED: PIPERACILLIN/TAZ 3.375G PREMIX 50 ML IV SCH (22:00)
[2020-02-11] MEDS ORDERED: DOCUSATE SODIUM 100MG CAPSULE PO PRN (22:00)
[2020-02-11] MEDS ORDERED: IPRATROPIUM/ALBUTEROL 0.5-3(2.5)MG/3ML NEB NEB PRN (22:00)
[2020-02-11] MEDS ORDERED: MAGNESIUM/ALUMINUM HYDROXIDE/SIMETHICONE 30ML UDC PO PRN (22:00)
[2020-02-11] MEDS ORDERED: ACETAMINOPHEN 325MG TABLET PO PRN (22:00)
[2020-02-12] MEDS: SODIUM CHLORIDE 0.9% 1,000 ML IV NR ×2 (00:30→17:37)
[2020-02-12 02:16] LABS: CLARITY URINE CLEAR (CLEAR); COLOR URINE YELLOW (YELLOW); KETONES URINE NEGATIVE (NEGATIVE); LEUKOCYTE ESTERASE URINE NEGATIVE (NEGATIVE); NITRITE URINE NEGATIVE (NEGATIVE); OCCULT BLOOD URINE NEGATIVE (NEGATIVE); PROTEIN URINE NEGATIVE (NEGATIVE); UROBILINOGEN URINE 0.2 E.U./dL (0.2-1.0)
[2020-02-12 02:30] LABS: *AMPHETAMINES SCREEN URINE NEGATIVE (NEGATIVE); *BARBITURATES SCREEN URINE NEGATIVE (NEGATIVE); *BENZODIAZEPINES SCREEN URINE NEGATIVE (NEGATIVE); *COCAINE SCREEN URINE NEGATIVE (NEGATIVE); CANNABINOID URINE SCREEN NEGATIVE (NEGATIVE); PHENCYCLIDINE URINE SCREEN NEGATIVE (NEGATIVE)
[2020-02-12 02:31] LABS: METHADONE URINE SCREEN NEGATIVE (NEGATIVE); OPIATES URINE SCREEN NEGATIVE (NEGATIVE)
[2020-02-12 04:45] LABS: BASOPHILS % 1.4 % (0.0-2.0); EOSINOPHILS % 3.5 % (0.0-5.0); HEMATOCRIT. 35.4 % (42.0-52.0); LYMPHOCYTES % 11.6 % (20.0-50.0); MEAN CORPUSCULAR VOLUME 88.7 fL (80.0-94.0); MEAN PLATELET VOLUME 8.7 fl (7.4-10.4); MONOCYTES % 9.5 % (2.0-8.0); PLATELET 339 x1000/uL (130-400); RED BLOOD CELL COUNT 3.99 mill/uL (4.7-6.1); RED CELL DISTRIBUTION WIDTH 13.7 % (11.6-14.6)
[2020-02-12] MEDS: PIPERACILLIN/TAZOBACTAM 2.25 G in DEXTROSE 5% WATER 50 ML IV SCH ×2 (06:56→17:37)
[2020-02-12] MEDS ORDERED: DEXTROSE 50% WATER 50ML SYRINGE IV ONE (09:01)
[2020-02-12] MEDS ORDERED: POTASSIUM CHLORIDE 20MEQ TABLET SR PO NR (10:00)
[2020-02-12] MEDS ORDERED: CLONIDINE 0.1MG TABLET PO SCH (14:45)
[2020-02-12] MEDS ORDERED: INSULIN GLARGINE UD 100 UNITS/ML SYR SUBCUT SCH (22:00)
[2020-02-12] MEDS: ATORVASTATIN CALCIUM 10MG TABLET PO SCH (23:30)
[2020-02-13] VITALS (7 sets, daily range): BP systolic 142–172; BP diastolic 63–80
[2020-02-13] MEDS ORDERED: DEXTROSE 50% WATER 50ML SYRINGE IV PRN (00:45)
[2020-02-13] MEDS: PIPERACILLIN/TAZOBACTAM 2.25 G in DEXTROSE 5% WATER 50 ML IV SCH ×3 (05:41→23:42)
[2020-02-13] MEDS: SODIUM CHLORIDE 0.9% 1,000 ML IV NR (05:41)
[2020-02-13] MEDS: BLOOD SUGAR DIAGNOSTIC STRIP TEST SCH ×4 (06:08→21:00)
[2020-02-13] MEDS: INSULIN LISPRO 100 UNITS/ML SUBCUT SCH ×4 (06:26→23:44)
[2020-02-13 06:54] LABS: PHOSPHORUS 4.3 mg/dL (2.5-4.9)
[2020-02-13 07:04] LABS: BASOPHILS % 1.7 % (0.0-2.0); EOSINOPHILS % 6.2 % (0.0-5.0); HEMATOCRIT. 32.5 % (42.0-52.0); LYMPHOCYTES % 16.7 % (20.0-50.0); MEAN CORPUSCULAR VOLUME 88.5 fL (80.0-94.0); MEAN PLATELET VOLUME 8.8 fl (7.4-10.4); MONOCYTES % 9.9 % (2.0-8.0); NEUTROPHILS % 65.5 % (40.0-76.0); PLATELET 300 x1000/uL (130-400); RED BLOOD CELL COUNT 3.67 mill/uL (4.7-6.1); RED CELL DISTRIBUTION WIDTH 13.8 % (11.6-14.6)
[2020-02-13] MEDS: GLIPIZIDE 5MG TABLET PO SCH (09:21)
[2020-02-13] MEDS: CARVEDILOL 6.25 MG TABLET PO SCH ×2 (09:21→21:00)
[2020-02-13] MEDS: INSULIN GLARGINE UD 100 UNITS/ML SYR SUBCUT SCH ×2 (11:35→23:45)
[2020-02-13] MEDS: ATORVASTATIN CALCIUM 10MG TABLET PO SCH (23:42)
[2020-02-14] VITALS: BP 139/54
[2020-02-14] MEDS: SODIUM CHLORIDE 0.9% 1,000 ML IV NR (00:02)
[2020-02-14 04:00] VITALS: BP 121/67
[2020-02-14] MEDS: BLOOD SUGAR DIAGNOSTIC STRIP TEST SCH ×3 (06:05→16:43)
[2020-02-14] MEDS: PIPERACILLIN/TAZOBACTAM 2.25 G in DEXTROSE 5% WATER 50 ML IV SCH (06:05)
[2020-02-14 06:31] LABS: HEMATOCRIT. 31.8 % (42.0-52.0); HEMOGLOBIN. 10.7 g/dL (14.0-18.0); MEAN CORPUSCULAR HEMOGLOBIN 29.8 pg (28.0-32.0); MEAN CORPUSCULAR VOLUME 88.2 fL (80.0-94.0); RED CELL DISTRIBUTION WIDTH 13.5 % (11.6-14.6)
[2020-02-14 06:38] LABS: PHOSPHORUS 4.1 mg/dL (2.5-4.9)
[2020-02-14] MEDS: INSULIN LISPRO 100 UNITS/ML SUBCUT SCH ×3 (07:15→16:44)
[2020-02-14 08:00] VITALS: BP 143/63
[2020-02-14] MEDS: GLIPIZIDE 5MG TABLET PO SCH (09:06)
[2020-02-14] MEDS: CARVEDILOL 6.25 MG TABLET PO SCH (09:06)
[2020-02-14 10:22] LABS: PLATELET 318 x1000/uL (130-400)
[2020-02-14 10:24] LABS: PLATELET ESTIMATE NORMAL
[2020-02-14] MEDS: INSULIN GLARGINE UD 100 UNITS/ML SYR SUBCUT SCH (11:26)
[2020-02-14 12:00] VITALS: BP 140/73
[2020-02-14 14:23] VITALS: BP 134/86
[2020-02-14 16:00] VITALS: BP 135/68
[2020-02-14] MEDS ORDERED: INSULIN GLARGINE UD 100 UNITS/ML SYR SUBCUT SCH (22:00)
== END 2020-02-14 17:20 | disposition home health service (06) | DRG 299 ==
LOC: ER 15:55 → MICUSO 20:52 → 5WST 02-13 01:40
PROVIDERS: ADMIT Internal Medicine; ATTEND Internal Medicine
DX: E11.51 Type 2 diabetes mellitus with diabetic peripheral angiopathy without gangrene (principal); N17.0 Acute kidney failure with tubular necrosis; E44.1 Mild protein-calorie malnutrition; N18.4 Chronic kidney disease, stage 4 (severe); I13.0 Hypertensive heart and chronic kidney disease with heart failure and stage 1 through stage 4 chronic kidney disease, or unspecified chronic kidney disease; I42.9 Cardiomyopathy, unspecified; I50.32 Chronic diastolic (congestive) heart failure; I87.8 Other specified disorders of veins; D64.9 Anemia, unspecified; E11.22 Type 2 diabetes mellitus with diabetic chronic kidney disease; E11.40 Type 2 diabetes mellitus with diabetic neuropathy, unspecified; E11.649 Type 2 diabetes mellitus with hypoglycemia without coma; E78.5 Hyperlipidemia, unspecified; R26.9 Unspecified abnormalities of gait and mobility; R33.9 Retention of urine, unspecified; E87.6 Hypokalemia; I25.10 Atherosclerotic heart disease of native coronary artery without angina pectoris; Z79.84 Long term (current) use of oral hypoglycemic drugs; Z68.27 Body mass index [BMI] 27.0-27.9, adult; Z79.899 Other long term (current) drug therapy; Z82.49 Family history of ischemic heart disease and other diseases of the circulatory system; Z83.3 Family history of diabetes mellitus; Z95.1 Presence of aortocoronary bypass graft; Z79.4 Long term (current) use of insulin
CPT/HCPCS: 36415; 71045; 76770; 80048; 80053; 80061; 80305; 81003; 82550; 82962; 83036; 83605; 83735; 83880; 84100; 84443; 84484; 85025; 93005; 93970; 99285; J1815; J1940; J2543; J3370; J7030; J7060